=== PATIENT | female | born 1985 | race Hispanic/Latino ===

== ENCOUNTER 2019-02-03 21:39 | Emergency (ER) | payer OTHER ==
--- OUTSIDE RECORDS SUMMARY | 2019-02-03 21:42 | XMS REPORT | Summary of Care ---
:1985 Author Name RAQUEL MELENDEZ M.D. Address Unavailable Unavailable , Care Team Providers Name Role Phone RAQUEL MELENDEZ M.D. Unavailable Unavailable Unavailable Unavailable Unavailable Functional Status Name Dates Details Functional status health issues are not documented Status: Name Dates Details Cognitive status health issues are not documented Status: Problems Name Dates Details Common wart (078.19, B07.8) Status: Active Medications Name Dates Details TABS Refills: 0 Active Heparin Sodium (Porcine) 24327 UNIT/10ML Intravenous Solution Prefilled Syringe Refills: 0 Active Allergies and Adverse Reactions Name Dates Details No Known Drug Allergies (Allergy) Status: Active Procedures Procedure Dates Details Procedures not documented Immunization Name Dates Details Immunizations not documented Social History Name Dates Details Unknown if ever smoked Vital Signs Date Test Result Details No Known Vitals to report Results Date Description Value Details Results not documented Plan of Care Name Dates Details Planned Observations Planned Goals not documented Interventions Provided Discussion/SummaryImpression:. Verruca vulgaris- r/b/a of procedure discussed including blister development and pain -> consent -> etoh prep -> pare with 15 blade until flush with surrounding skin, cryo x 2 cycles to 2 lesion, patient tolerated well.Skin tag, L axillaverbal consent obtained, explained r/b/ a of procedure including risk of pain, bleeding, scar formation, light or dark isidra after treatment, and chance for lesion to regrow after treatment -> etoh prep -> gradle removal of 1 lesionPatient tolerated procedure well. Patient understands that the lesions will NOT be sent for pathology and tissue will be discarded.RTC 1 mo or PRN. Patient Discussion: This was discussed in detail with the patient and all questions were answered. Instructions Name Dates Details Instructions not documented Encounters Appointment; RAQUEL MELENDEZ M.D. On: 16-Jul-2017 13:00 Encounter Diagnosis: Problem not documented
[2019-02-03] MEDS ORDERED: NA CHLORIDE 0.9% 1,000 ML ONE (22:04)
[2019-02-03] MEDS ORDERED: PROMETHAZINE 25 MG/ML VIAL ONE (22:04)
[2019-02-03] MEDS ORDERED: PANTOPRAZOLE 40 MG INJ ONE (22:04)
[2019-02-03 22:27] LABS: Basophils % 0.3 % (0-1.3); Lymphocytes % 7.2 % (15.3-44.8); MPV 10.2 fL (7.6-11.3); RBC Red Blood Cell Count 4.68 M/uL (3.86-4.86)
[2019-02-03 22:55] LABS: Blood Morphology Comment NOT SEEN (NOT SEEN); Platelet Estimate ADEQ; Urine White Blood Cell Casts OK
[2019-02-03 23:08] LABS: Albumin 3.9 g/dL (3.4-5.0); Bilirubin Direct 0.2 mg/dL (0-0.2); Bilirubin Total 0.7 mg/dL (0.2-1.0); Potassium 3.6 mmol/L (3.5-5.1); Protein, Total 7.6 g/dL (6.4-8.2)
[2019-02-04 00:42] LABS: Urine Bacteria 20-50 /HPF (<20); Urine Culture Reflex Order NOT NEEDED; Urine Mucus 2+ /HPF (NONE SEEN)
[2019-02-04 00:42] LABS: Urine Blood TRACE (NEG); Urine Glucose NEGATIVE (NEG); Urine Protein NEGATIVE (NEG); Urine Specific Gravity 1.025 (1.005-1.030); Urine pH 6.5 (5.0-7.0)
--- NOTE | 2019-02-04 00:48 | ER ---
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 Transition of care: patient was not received from another setting of care. Onset of symptoms was February 03, 2019 at 14:00. Risk Assessment: Do you want to hurt yourself or someone else? Patient reports no desire to harm self or others. Initial Sepsis Screen: Does the patient meet any 2 criteria? No. Patient's initial sepsis screen is negative. Does the patient have a suspected source of infection? No. Patient's initial sepsis screen is negative. Care prior to arrival: None. 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 - Social history:: Smoking status: Patient/guardian denies using tobacco. - Ebola Screening: : No symptoms or risks identified at this time. Screenin:59 Abuse screen: Denies threats or abuse. Denies injuries from another. Nutritional lp1 screening: No deficits noted. Tuberculosis screening: No symptoms or risk factors identified. Fall Risk None identified. Assessment: 22:00 General: Appears uncomfortable, Behavior is appropriate for age. Pain: Complains of lp1 pain in epigastric area, right upper quadrant and left upper quadrant Pain radiates to back Pain currently is 10 out of 10 on a pain scale. Quality of pain is described as sharp, stabbing, Pain began gradually. Neuro: Level of Consciousness is awake, alert, obeys commands, Oriented to person, place, time, situation. Cardiovascular: Patient's skin is warm and dry. Respiratory: Respiratory effort is even, unlabored. GI: Abdomen is non-distended, Pt is actively vomiting bile, Bowel sounds present X 4 quads. Abdomen is tender to palpation in epigastric area, right upper quadrant and left upper quadrant Reports nausea, vomiting. : No signs and/or symptoms were reported regarding the genitourinary system. EENT: No signs and/or symptoms were reported regarding the EENT system. Derm: Skin is pink, warm \T\ dry. Musculoskeletal: No deficits noted. 23:00 Reassessment: Patient appears in no apparent distress at this time. Patient states lp1 nausea relief and some pain relief at this time. 02/04 00:00 Reassessment: Patient appears in no apparent distress at this time. Patient and/or lp1 family updated on plan of care and expected duration. Pain level reassessed. Patient states some pain returning at this time. 00:50 Reassessment: Patient appears in no apparent distress at this time. Provider at bedside lp1 to update patient on results. Vital Signs: 02/03 21:57 BP 124 / 74; Pulse 99; Resp 18; Temp 98.9(O); Pulse Ox 97% on R/A; Weight 74.84 kg; lp1 Height 5 ft. 4 in. (162.56 cm); Pain 10/10; 23:45 BP 124 / 79; Pulse 87; Resp 16; Pulse Ox 97% on R/A; lp1 02/04 00:30 BP 120 / 75; Pulse 87; Resp 16; Pulse Ox 97% on R/A; lp1 01:08 BP 108 / 69; Pulse 85; Resp 16; Pulse Ox 98% on R/A; lp1 02/03 21:57 Body Mass Index 28.32 (74.84 kg, 162.56 cm) lp1 ED Course: 02/03 21:42 Patient arrived in ED. ag3 21:56 Claire Rodney, EDGAR is Primary Nurse. lp1 21:57 Triage completed. lp1 21:57 Petey Wayne PA is PHCP. jr8 21:57 Pawan Velez MD is Attending Physician. jr8 21:57 Arm band placed on. lp1 21:59 Patient has correct armband on for positive identification. Placed in gown. Pulse ox lp1 on. NIBP on. 22:15 Missed attempt(s): 20 gauge in right antecubital area. lp1 22:20 Inserted saline lock: 22 gauge in right forearm, using aseptic technique. lp1 22:42 Radiology exam delayed due to lab results not completed at this time. (HCG) (BUN/Creatinine). 23:14 Radiology exam delayed due to test not completed at this time. 02/04 00:[address] via wheelchair. 00:09 CT completed. Patient tolerated procedure well. Patient moved back from CT. 00:30 CT Abd/Pelvis - IV Contrast Only In Process Unspecified. EDMS 01:06 No provider procedures requiring assistance completed. lp1 01:13 IV discontinued, No redness/swelling at site. Pressure dressing applied. lp1 Administered Medications: 02/03 22:25 Drug: Promethazine 12.5 mg Route: IVP; Site: right forearm; lp1 23:00 Follow up: Response: Marked relief of symptoms; Nausea is decreased lp1 22:25 Drug: ProTONIX 40 mg Route: IVP; Site: right forearm; lp1 23:00 Follow up: Response: No adverse reaction lp1 22:25 Drug: NS 0.9% 1000 ml Route: IV; Rate: 1000 ml; Site: right forearm; lp1 23:44 Follow up: IV Status: Completed infusion; IV Intake: 1000ml lp1 02/04 01:00 Drug: Rocephin 1 grams Route: IV; Rate: calculated rate; Site: right antecubital; ao 01:00 Follow up: IV Status: Completed infusion; IV Intake: 10ml ao 01:01 Follow up: Response: Medication administered at discharge. ao 01:16 Follow up: IV Status: Completed infusion; IV Intake: 10ml lp1 Intake: 02/03 23:44 IV: 1000ml; Total: 1000ml. lp1 02/04 01:00 IV: 10ml; Total: 1010ml. ao 01:16 IV: 10ml; Total: 1020ml. lp1 Outcome: 00:47 Discharge ordered by jrKanwal 01:07 Discharged to home ambulatory, with family. lp1 01:07 Condition: good 01:07 Discharge instructions given to patient, Instructed on discharge instructions, follow up and referral plans. medication usage, Demonstrated understanding of instructions, follow-up care, medications, Prescriptions given X 3. 01:16 Patient left the ED. lp1 Signatures: Dispatcher [employer] EDDav Sanderson Laura, RN RN lp1 Petey Wayne PA PA jr8 Karlos Parsons RN RN ao Gomez, Alice ag3
--- NOTE | 2019-02-04 00:48 | EDPHYS ---
Physician Documentation [facility] Name: Dee Alves Age: 34 yrs Sex: Female : 1985 Arrival Date: 02/03/2019 Time: 21:42 Bed 8 Private MD: ED Physician Pawan Velez HPI: 02/03 22:27 This 34 yrs old Female presents to ER via Ambulatory with complaints of jr8 Abdominal Pain. 22:27 The patient presents with abdominal pain in the epigastric area, in the upper abdomen. jr8 Onset: The symptoms/episode began/occurred acutely, today. The symptoms do not radiate. Associated signs and symptoms: Pertinent positives: nausea and vomiting. The symptoms are described as stabbing. Modifying factors: The symptoms are alleviated by nothing, the symptoms are aggravated by food. Severity of pain: At its worst the pain was moderate in the emergency department the pain is unchanged. The patient has not experienced similar symptoms in the past. The patient has not recently seen a physician. 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 - Social history:: Smoking status: Patient/guardian denies using tobacco. - Ebola Screening: : No symptoms or risks identified at this time. ROS: 22:27 Eyes: Negative for injury, pain, redness, and discharge, ENT: Negative for injury, jr8 pain, and discharge, Neck: Negative for injury, pain, and swelling, Cardiovascular: Negative for chest pain, palpitations, and edema, Respiratory: Negative for shortness of breath, cough, wheezing, and pleuritic chest pain, Back: Negative for injury and pain, MS/Extremity: Negative for injury and deformity, Skin: Negative for injury, rash, and discoloration, Neuro: Negative for headache, weakness, numbness, tingling, and seizure. 22:27 Abdomen/GI: Positive for abdominal pain, nausea and vomiting, Negative for diarrhea, constipation, abdominal cramps, abdominal distension. Exam: 22:27 Eyes: Pupils equal round and reactive to light, extra-ocular motions intact. Lids and jr8 lashes normal. Conjunctiva and sclera are non-icteric and not injected. Cornea within normal limits. Periorbital areas with no swelling, redness, or edema. ENT: Nares patent. No nasal discharge, no septal abnormalities noted. Tympanic membranes are normal and external auditory canals are clear. Oropharynx with no redness, swelling, or masses, exudates, or evidence of obstruction, uvula midline. Mucous membranes moist. Neck: Trachea midline, no thyromegaly or masses palpated, and no cervical lymphadenopathy. Supple, full range of motion without nuchal rigidity, or vertebral point tenderness. No Meningismus. Cardiovascular: Regular rate and rhythm with a normal S1 and S2. No gallops, murmurs, or rubs. Normal PMI, no JVD. No pulse deficits. Respiratory: Lungs have equal breath sounds bilaterally, clear to auscultation and percussion. No rales, rhonchi or wheezes noted. No increased work of breathing, no retractions or nasal flaring. Back: No spinal tenderness. No costovertebral tenderness. Full range of motion. Skin: Warm, dry with normal turgor. Normal color with no rashes, no lesions, and no evidence of cellulitis. MS/ Extremity: Pulses equal, no cyanosis. Neurovascular intact. Full, normal range of motion. Neuro: Awake and alert, GCS 15, oriented to person, place, time, and situation. Cranial nerves II-XII grossly intact. Motor strength 5/5 in all extremities. Sensory grossly intact. Cerebellar exam normal. Normal gait. 22:27 Abdomen/GI: Inspection: abdomen appears normal, Bowel sounds: active, all quadrants, Palpation: soft, in all quadrants, moderate abdominal tenderness, in the epigastric area, mass, is not appreciated, rebound tenderness, is not appreciated, voluntary guarding, is not appreciated, involuntary guarding, is not appreciated, no appreciated organomegaly, Indicators: McBurney's point is not tender, Lino's sign is negative, Rovsing's sign is negative, Liver: tenderness, is not appreciated. Vital Signs: 21:57 BP 124 / 74; Pulse 99; Resp 18; Temp 98.9(O); Pulse Ox 97% on R/A; Weight 74.84 kg; lp1 Height 5 ft. 4 in. (162.56 cm); Pain 10/10; 23:45 BP 124 / 79; Pulse 87; Resp 16; Pulse Ox 97% on R/A; lp1 02/04 00:30 BP 120 / 75; Pulse 87; Resp 16; Pulse Ox 97% on R/A; lp1 01:08 BP 108 / 69; Pulse 85; Resp 16; Pulse Ox 98% on R/A; lp1 02/03 21:57 Body Mass Index 28.32 (74.84 kg, 162.56 cm) lp1 MDM: 02/03 22:00 Patient medically screened. 8 02/04 00:46 Data reviewed: vital signs, nurses notes, lab test result(s), radiologic studies, CT jr8 scan. Data interpreted: Pulse oximetry: on room air is 97 %. Interpretation: normal. Counseling: I had a detailed discussion with the patient and/or guardian regarding: the historical points, exam findings, and any diagnostic results supporting the discharge/admit diagnosis, lab results, radiology results, the need for outpatient follow up, a family practitioner, to return to the emergency department if symptoms worsen or persist or if there are any questions or concerns that arise at home. 00:46 Response to treatment: the patient's symptoms have markedly improved after treatment, jr8 patient is well hydrated. 02/03 22:00 Order name: Basic Metabolic Panel; Complete Time: 23:12 [facility] 02/03 22:00 Order name: CBC with Diff; Complete Time: 23:12 [facility] 02/03 22:00 Order name: Creatinine for Radiology; Complete Time: 22:52 [facility] 02/03 22:00 Order name: Hepatic Function; Complete Time: 23:12 [facility] 02/03 22:00 Order name: Lipase; Complete Time: 23:12 [facility] 02/03 22:56 Order name: CBC Smear Scan; Complete Time: 23:12 [facility] 02/03 22:31 Order name: CT Abd/Pelvis - IV Contrast Only [facility] 02/03 23:48 Order name: Urine Microscopic Only; Complete Time: 00:46 [facility] 02/03 23:48 Order name: Urine Culture [facility] 02/03 23:59 Order name: Urine Dipstick--Ancillary (enter results); Complete Time: 00:46 [facility] 02/03 23:59 Order name: Urine --Ancillary (enter results); Complete Time: 00:46 [facility] 02/03 22:00 Order name: IV Saline Lock; Complete Time: 22:29 jr8 02/03 22:00 Order name: Labs collected and sent; Complete Time: 22:30 jr8 02/03 22:00 Order name: Urine Test (obtain specimen); Complete Time: 23:51 jr8 02/03 22:00 Order name: Urine Dipstick-Ancillary (obtain specimen); Complete Time: 23:51 jr8 Administered Medications: 02/03 22:25 Drug: Promethazine 12.5 mg Route: IVP; Site: right forearm; lp1 23:00 Follow up: Response: Marked relief of symptoms; Nausea is decreased lp1 : Drug: ProTONIX 40 mg Route: IVP; Site: right forearm; lp1 23:00 Follow up: Response: No adverse reaction 1 : Drug: NS 0.9% 1000 ml Route: IV; Rate: 1000 ml; Site: right forearm; lp1 23:44 Follow up: IV Status: Completed infusion; IV Intake: 1000ml lp1 02/04 01:00 Drug: Rocephin 1 grams Route: IV; Rate: calculated rate; Site: right antecubital; ao 01:00 Follow up: IV Status: Completed infusion; IV Intake: 10ml ao 01:01 Follow up: Response: Medication administered at discharge. ao 01:16 Follow up: IV Status: Completed infusion; IV Intake: 10ml lp1 Disposition: 06:19 Co-signature as Attending Physician, Pawan Velez MD I agree with the assessment and 4 plan of care. Disposition: 02/04/19 00:47 Discharged to Home. Impression: Vomiting, Epigastric pain, Urinary tract infection, site not specified. - Condition is Stable. - Discharge Instructions: Abdominal Pain, Adult, Urinary Tract Infection, Adult. - Prescriptions for Macrobid 100 mg Oral Capsule - take 1 capsule by ORAL route every 12 hours for 7 days; 14 capsule. promethazine 25 mg Oral Tablet - take 1 tablet by ORAL route every 6 hours As needed; 20 tablet. Bentyl 20 mg Oral Tablet - take 1 tablet by ORAL route every 6 hours As needed; 20 tablet. - Work release form, Medication Reconciliation Form, Thank You Letter, Antibiotic Education, Prescription Opioid Use form. - Follow up: Private Physician; When: 2 - 3 days; Reason: Recheck today's complaints, Continuance of care, Re-evaluation by your physician. - Problem is new. - Symptoms have improved. Signatures: Dispatcher [employer] [facility] Claire Rodney RN RN lp1 Petey Wayne, REY LE jr8 Karlos Parsons RN RN Pawan Matthews MD MD tw4 Corrections: (The following items were deleted from the chart) 02/03 23:38 23:29 TEST, SERUM+SC.LAB.BRZ ordered. [facility] 02/04 01:16 00:47 02/04/2019 00:47 Discharged to Home. Impression: Vomiting; Epigastric pain; lp1 Urinary tract infection, site not specified. Condition is Stable. Forms are Medication Reconciliation Form, Thank You Letter, Antibiotic Education, Prescription Opioid Use. Follow up: Private Physician; When: 2 - 3 days; Reason: Recheck today's complaints, Continuance of care, Re-evaluation by your physician. Problem is new. Symptoms have improved. jr8
[2019-02-04] MEDS ORDERED: CEFTRIAXONE/SWI 1gm 0 GM/0 ML SYR ONE (00:52)
[2019-02-04] MEDS ORDERED: CEFTRIAXONE/SWI 1gm 1 GM/10 ML SYR ONE (00:57)
[2019-02-04 05:29] VITALS: TEMP 98.9
[2019-02-04 05:33] VITALS: BP 108/69; O2SAT 98
--- NOTE | 2019-02-04 10:56 | RAD REPORT ---
EXAM DESCRIPTION: CT - Abdomen Pelvis W Contrast - 02/04/2019 1:28 am CLINICAL HISTORY: 34 years Female ABD PAIN COMPARISON: None TECHNIQUE: Images were obtained in axial, sagittal, and coronal planes. Intravenous contrast was adm inistered. Arterial and venous phase imaging was performed in the axial projection. This exam was performed according to our departmental dose-optimization program which includes use of Automated Exposure Control, adjustment of the mA and/or kV according to patient size and/or use of i terative reconstruction technique. FINDINGS: Decreased attenuation involving liver likely fatty change. Unremarkable spleen, pancreas, and adrenal glands bilaterally. Mildly distended gallbladder. No obstructing renal calcifications bilaterally. No hydronephrosis bilaterally. Incompletely distende d bladder. Appendix within normal limits. No bowel obstruction, perforation, or inflammation. No abnormality abdominal aorta or portal vein. No adenopathy or abnormal fluid collections seen. No acute osseous abnormality. Dependent atelectatic change lower lungs bilaterally. IMPRESSION: No acute intra-abdominal abnormality. 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 The interpreting radiologist is f ully responsible for the content of the report.
== END 2019-02-04 01:16 | disposition home or self-care (01) ==
LOC: ER 21:39
DX: N39.0 Urinary tract infection, site not specified (principal); R11.10 Vomiting, unspecified
CPT/HCPCS: 96361; 87088; 85025; 87086; 80048; 36415; 81025; 80076; 83690; 74177; 96375; 96374; 99284; Q9967; J2550; C9113; J0696; J7030; 81003; 81015

== ENCOUNTER 2020-08-04 08:48 | Day surgery (SDC) | payer OTHER ==
[2020-08-04] MEDS ORDERED: ACETAMINOPHEN 500 MG TAB PO ONE (09:20)
[2020-08-04] MEDS ORDERED: CELECOXIB 100 MG CAPSULE PO ONE (09:20)
[2020-08-04] MEDS ORDERED: CEFAZOLIN/SWI 1gm 1 GM/10 ML SYR ONE (09:27)
[2020-08-04] MEDS ORDERED: Ringers Lactate 1,000 ML IV ONE (09:27)
[2020-08-04] MEDS ORDERED: CELECOXIB 100 MG CAPSULE ONE (09:45)
[2020-08-04] MEDS ORDERED: ACETAMINOPHEN 500 MG TAB ONE (09:46)
[2020-08-04] MEDS ORDERED: BUPIVACAINE 0.25% PF 30 ML VIAL ONE (10:22)
[2020-08-04] MEDS ORDERED: propofoL 200 MG/20 ML VIAL IV ONE (10:24)
[2020-08-04] MEDS ORDERED: MIDAZOLAM HCL 2 MG/2 ML INJ ONE (10:24)
[2020-08-04] MEDS ORDERED: FENTANYL CITR 100 MCG/2 ML ONE (10:24)
[2020-08-04] MEDS ORDERED: LIDOCAINE 1% MPF 5 ML VIAL ONE (10:24)
[2020-08-04] MEDS ORDERED: dexAMETHasone 10 MG/ML VIAL ONE (11:00)
[2020-08-04] MEDS ORDERED: KETOROLAC 30 MG/ML INJ ONE (11:00)
--- NOTE | 2020-08-04 11:07 | P.OP ---
Preoperative diagnosis: Back Lipomatous Mass Postoperative diagnosis: Back Lipomatous Mass Primary procedure: Wide excision of Lipomatous Mass Anesthesia: GETA + Local Estimated blood loss: <2cc Specimen: lipoma Findings: ~ 4cm round lipomatous mass to muscle Complications: None Transferred to: Recovery Room Condition: Good
[2020-08-04] MEDS ORDERED: ONDANSETRON 4 MG/2 ML VIAL ONE (11:19)
[2020-08-04] MEDS ORDERED: HYDROCODONE/APAP 7.5/325 MG TAB ONE (13:08)
[2020-08-04 14:27] VITALS: BP 114/69; TEMP 98.4; O2SAT 99
--- NOTE | 2020-08-04 21:41 | OP ---
Date of Procedure: 08/04/2020 Surgeon: Lamont Dougherty MD, Preoperative Diagnosis: Back lipomatous mass. Postoperative Diagnosis: Back lipomatous mass. Procedure Performed: Wide excision of lipomatous mass of the mid back. Anesthesia: General endotracheal plus local with 0.25% Marcaine. Estimated Blood Loss: 2 mL. Specimen: Lipoma. Findings: Approximately 4 cm round lipomatous mass extending to the muscle and up through the fascia overlying the muscle. Complications: None. Disposition: The patient transferred to recovery room in good condition. Procedure In Detail: After informed consent was obtained, the patient was brought to the operating r oom, prepped and draped in the usual sterile fashion. After adequate anesthesia was achieved, linear incision was made overlying the lipomatous mass in the upper midback area just off center to the rig ht of midline. After appropriately anesthetizing the skin with 0.25% Marcaine, the skin was incised with a 15 blade down through subcutaneous tissues. Electrocautery was used to dissect circumferentia lly around the lipomatous mass. This was circumferentially removed. It was found to be into the fas jerson overlying the muscle but not involving the muscle as such. It was removed with a small rim of fa scia overlying the muscle on block. It was approximately 4 cm round and sent off for pathologic exam ination. The area was copiously irrigated at this time. The deep dermal plane was closed using an i nterrupted 3-0 Vicryl suture and the skin was closed with 4-0 Monocryl in a running fashion. Dermabo nd was placed over top. The patient tolerated the procedure without evidence of complication and tra nsferred to PACU in good condition. All counts were correct at the end of the case. TK/MODL Voice ID: [id number] Report ID: [id number]
== END 2020-08-04 13:38 | disposition home or self-care (01) ==
LOC: OR 08:48
PROVIDERS: ATTEND Surgery
PROC: 0JB70ZZ Excision of Back Subcutaneous Tissue and Fascia, Open Approach (ICD-10-PCS; principal; 2020-08-04 11:45)
DX: D17.1 Benign lipomatous neoplasm of skin and subcutaneous tissue of trunk (principal); Z20.822 Contact with and (suspected) exposure to COVID-19
CPT/HCPCS: 81025; 88304; 11404; U0002; J2704; J2250; J3010; J1100; J0690; J7120; J2405; 88305

== ENCOUNTER 2020-11-23 17:18 | Emergency (ER) | payer OTHER ==
[2020-11-23 18:46] LABS: Urine Blood Trace-intact (Negative); Urine Glucose Negative (Negative); Urine Protein Negative (Negative); Urine Specific Gravity 1.015 (1.005-1.030)
[2020-11-23 18:56] LABS: Urine Specific Gravity/Preg 1.015 (1.005-1.030)
[2020-11-23] MEDS ORDERED: ONDANSETRON 4 MG/2 ML VIAL ONE (19:08)
[2020-11-23] MEDS ORDERED: MORPHINE 4 MG/ML SYR ONE (19:08)
[2020-11-23 19:24] LABS: ALT/SGPT 109 U/L (12-78); AST/SGOT 168 U/L (15-37); Albumin 4.5 g/dL (3.4-5.0); Alkaline Phosphatase 87 U/L (45-117); BUN Blood Urea Nitrogen 8 mg/dL (7-18); Bicarbonate 29 mmol/L (21-32); Bilirubin Direct < 0.1 mg/dL (0-0.2); Bilirubin Total 0.4 mg/dL (0.2-1.0); Glucose Level 79 mg/dL (74-106); Lipase 158 U/L (73-393); Potassium 3.7 mmol/L (3.5-5.1); Protein, Total 8.9 g/dL (6.4-8.2); Sodium Level 142 mmol/L (136-145)
[2020-11-23 19:41] LABS: Absolute Lymphocytes (CBC) 2.8 K/uL (0.7-4.9); Basophils % 0.5 % (0-1.3); Hematocrit 34.4 % (36.0-45.0); Lymphocytes % 27.2 % (15.3-44.8); RBC Red Blood Cell Count 3.96 M/uL (3.86-4.86)
[2020-11-23] MEDS ORDERED: NA CHLORIDE 0.9% 500 ML ONE (20:02)
--- NOTE | 2020-11-23 20:20 | RAD REPORT ---
EXAM DESCRIPTION: CT - Abdomen Pelvis W Contrast - 11/23/2020 7:41 pm CLINICAL HISTORY: rectal pressure and bleeding;Abd pain COMPARISON: <Comparisons> TECHNIQUE: Biphasic, helical CT imaging of the abdomen and pelvis was performed following 100 ml non -ionic IV contrast. No oral contrast. All CT scans are performed using dose optimization technique as appropriate and may include automated exposure control or mA/KV adjustment according to patient size. FINDINGS: No suspicious findings in the lung bases. The liver, spleen, and pancreas show no suspicious focal findings. Liver again shows mild diffuse fat ty infiltration. No gallbladder or biliary tree abnormality. Symmetric renal function is seen with no hydronephrosis or suspicious renal mass. No pyelonephritis o r acute parenchymal process. No bladder abnormalities. No adrenal abnormalities. Uterus and ovaries s how no suspicious findings. No stomach or small bowel abnormality. Appendix is normal. No rectal abnormality seen. No pelvic floo r suspicious finding. No acute colon process identified. No free air, free fluid or inflammatory stranding. No hernia, mass or bulky lymphadenopathy. No suspicious bony findings. IMPRESSION: Contrast enhanced CT abdomen and pelvis showing no acute or emergent finding. Above detailed findings are similar to 2019 comparison.
--- NOTE | 2020-11-23 20:34 | EDPHYS ---
Physician Documentation [facility] Name: Dee Alves Age: 35 yrs Sex: Female : 1985 Arrival Date: 11/23/2020 Time: 17:21 Bed 10 Private MD: ED Physician Felix Peralta HPI: 11/23 19:28 This 35 yrs old Female presents to ER via Ambulatory with complaints of Bloody jr8 Stools. 19:28 Onset: The symptoms/episode began/occurred acutely, today. Associated signs and jr8 symptoms: Pertinent positives: abdominal pain. The patient has not experienced similar symptoms in the past. The patient has not recently seen a physician. Patient stated that she started to have bright red blood in her stool. Has progressed to rectal pressure and abdominal pain denies fever. Has had an on and off diarrhea since this past Friday but is not unusual for her.. 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 - Social history:: Smoking status: Patient denies any tobacco usage or history of. ROS: 19:28 Eyes: Negative for injury, pain, redness, and discharge, ENT: Negative for injury, jr8 pain, and discharge, Neck: Negative for injury, pain, and swelling, Cardiovascular: Negative for chest pain, palpitations, and edema, Respiratory: Negative for shortness of breath, cough, wheezing, and pleuritic chest pain, Back: Negative for injury and pain, MS/Extremity: Negative for injury and deformity, Skin: Negative for injury, rash, and discoloration, Neuro: Negative for headache, weakness, numbness, tingling, and seizure. 19:28 Abdomen/GI: Positive for abdominal pain, rectal pain, rectal bleeding. Exam: 19:28 Constitutional: This is a well developed, well nourished patient who is awake, alert, jr8 and in no acute distress. Cardiovascular: Regular rate and rhythm with a normal S1 and S2. No gallops, murmurs, or rubs. Normal PMI, no JVD. No pulse deficits. Respiratory: Lungs have equal breath sounds bilaterally, clear to auscultation and percussion. No rales, rhonchi or wheezes noted. No increased work of breathing, no retractions or nasal flaring. Back: No spinal tenderness. No costovertebral tenderness. Full range of motion. Skin: Warm, dry with normal turgor. Normal color with no rashes, no lesions, and no evidence of cellulitis. MS/ Extremity: Pulses equal, no cyanosis. Neurovascular intact. Full, normal range of motion. Neuro: Awake and alert, GCS 15, oriented to person, place, time, and situation. Cranial nerves II-XII grossly intact. Motor strength 5/5 in all extremities. Sensory grossly intact. 19:28 Abdomen/GI: Inspection: abdomen appears normal, Bowel sounds: active, all quadrants, Palpation: soft, in all quadrants, mild abdominal tenderness, in the suprapubic area, right lower quadrant and left lower quadrant, mass, is not appreciated, rebound tenderness, is not appreciated, voluntary guarding, is not appreciated, involuntary guarding, is not appreciated, no appreciated organomegaly, Rectal exam: rectal tone normal, Stool: brown, guaiac positive, loose, hemorrhoid(s), internal, without inflammation, without thrombosis, without pain, mass, is not appreciated, swelling, is not appreciated, tenderness, is not appreciated, the exam is chaperoned by the nurse, Indicators: McBurney's point is not tender, Lino's sign is negative, Rovsing's sign is negative, Liver: tenderness, is not appreciated. Vital Signs: 17:54 BP 136 / 90; Pulse 75; Resp 17; Temp 97.8; Pulse Ox 100% on R/A; Weight 74.84 kg; jl7 Height 5 ft. 4 in. (162.56 cm); Pain 6/10; 20:59 BP 138 / 88; Pulse 70; Resp 18; Temp 97.6(O); Pulse Ox 100% on R/A; Pain 0/10; kc4 17:54 Body Mass Index 28.32 (74.84 kg, 162.56 cm) jl7 MDM: 18:26 Patient medically screened. jr8 20:31 Data reviewed: vital signs, nurses notes, lab test result(s), radiologic studies, CT jr8 scan. Data interpreted: Pulse oximetry: on room air is 100 %. Interpretation: normal. 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 Response to treatment: the patient's symptoms have markedly improved after treatment. Special discussion: Based on the patient's Hx, exam, and Dx evaluation, there is no indication for emergent surgery or inpatient Tx. It is understood by the patient/guardian that if the Sx's persist or worsen they need to return immediately for re-evaluation. 20:31 ED course: With patient that most likely this is a small internal hemorrhoid that has jr8 been causing some mild bleeding. No profuse bleeding on rectal exam. Hemoccult was positive. Will trial patient on Anusol and have her follow-up with gastroenterology. Otherwise she is hemodynamically stable and there is no acute findings on the CT with contrast. If she were to worsening point time to come back for further evaluation. Patient good with this at this time and will follow up.. 11/23 18:37 Order name: Basic Metabolic Panel 8 11/23 18:37 Order name: CBC with Diff; Complete Time: 20:15 8 11/23 18:37 Order name: Hepatic Function; Complete Time: 19:30 8 11/23 18:37 Order name: Lipase; Complete Time: 19:30 [facility] 11/23 18:37 Order name: Basic Metabolic Panel; Complete Time: 19:30 EDMS 11/23 18:45 Order name: Urine Dipstick-Ancillary; Complete Time: 19:30 EDMS 11/23 18:37 Order name: IV Saline Lock; Complete Time: 18:40 8 11/23 18:37 Order name: Labs collected and sent; Complete Time: 18:40 8 11/23 18:37 Order name: CT Abd/Pelvis - IV Contrast Only; Complete Time: 20:30 [facility] 11/23 18:46 Order name: Urine --Ancillary (enter results) em1 11/23 18:47 Order name: Urine --Ancillary; Complete Time: 19:30 EDMS 11/23 18:37 Order name: Urine Dipstick-Ancillary (obtain specimen); Complete Time: 18:45 jr8 11/23 18:37 Order name: Urine Test (obtain specimen); Complete Time: 18:45 jr8 Administered Medications: 18:47 Drug: Zofran (Ondansetron) 4 mg Route: IVP; Site: left forearm; vg1 21:00 Follow up: Response: No adverse reaction kc4 18:49 Drug: morphine 4 mg Route: IVP; Site: left forearm; vg1 21:00 Follow up: Response: No adverse reaction kc4 19:55 Drug: NS 0.9% 500 ml Route: IV; Rate: bolus; Site: left forearm; kc4 21:00 Follow up: Response: No adverse reaction; IV Status: Completed infusion kc4 Disposition Summary: 11/23/20 20:33 Discharge Ordered Location: Home jr Problem: new jr8 Symptoms: have improved jr8 Condition: Stable jr8 Diagnosis - Unspecified hemorrhoids - with bleeding jr8 Followup: jr8 - With: Brian Tolbert MD - When: 2 - 3 days - Reason: Recheck today's complaints, Continuance of care, Re-evaluation by your physician Discharge Instructions: - Discharge Summary Sheet jr8 - Hemorrhoids [facility] Forms: - Medication Reconciliation Form jr8 - Thank You Letter jr8 - Antibiotic Education jr8 - Prescription Opioid Use jr8 Prescriptions: - Anusol-HC 25 mg Rectal Suppository - insert 1 suppository by RECTAL route every 12 hours As needed; 20 suppository; jr8 Refills: 0, Product Selection Permitted Addendum: 11/27/2020 06:58 Co-signature as Attending Physician, Felix Peralta MD I agree with the assessment and c aguilar plan of care. Signatures: Dispatcher [employer] Felix Mcmillan MD MD cha Roszak, Josh, PA PA jr8 Crystal Alex, RN RN jl7 Sue Reyez, RN RN vg1 Elena Wells kc4
--- NOTE | 2020-11-23 20:34 | ER ---
Nurse's Notes [facility] Name: Dee Alves Age: 35 yrs Sex: Female : 1985 Arrival Date: 11/23/2020 Time: 17:21 Bed 10 Private MD: Diagnosis: Unspecified hemorrhoids-with bleeding Presentation: 11/23 17:54 Chief complaint: Patient states: Diarrhea since Friday, Bright red rectal bleeding jl7 since this morning, rectal pain started about 1200, denies N/V. Coronavirus screen: At this time, the client does not indicate any symptoms associated with coronavirus-19. Ebola Screen: No symptoms or risks identified at this time. Initial Sepsis Screen: Does the patient meet any 2 criteria? No. Patient's initial sepsis screen is negative. Does the patient have a suspected source of infection? No. Patient's initial sepsis screen is negative. Risk Assessment: Do you want to hurt yourself or someone else? Patient reports no desire to harm self or others. Onset of symptoms was November 23, 2020. 17:54 Method Of Arrival: Ambulatory 7 17:54 Acuity: DIOGENES 3 jl7 Triage Assessment: 17:56 General: Appears in no apparent distress. uncomfortable, Behavior is calm, cooperative, jl7 appropriate for age. Pain: Complains of pain in buttocks Pain currently is 6 out of 10 on a pain scale. GI: Reports diarrhea, rectal bleeding. 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 - Social history:: Smoking status: Patient denies any tobacco usage or history of. Screenin:07 Abuse screen: Denies threats or abuse. Denies injuries from another. Nutritional es2 screening: No deficits noted. Tuberculosis screening: No symptoms or risk factors identified. Fall Risk Gait- Normal/Bed Rest/Wheelchair (0 pts) Mental Status- Oriented to own ability (0 pts). Assessment: 18:05 Reassessment: Patient and/or family updated on plan of care and expected duration. Pain es2 level reassessed. Patient is alert, oriented x 3, equal unlabored respirations, skin warm/dry/pink. Pt reports diarrhea. Rectal bleeding that started today. General: Appears well groomed, well developed, well nourished, Behavior is calm, cooperative, appropriate for age. Pain: Complains of pain in back Pain currently is 6 out of 10 on a pain scale. Neuro: Level of Consciousness is awake, alert, obeys commands, Oriented to person, place, time, situation, Appropriate for age Gait is steady, Speech is normal. Cardiovascular: Capillary refill < 3 seconds Patient's skin is warm and dry. Respiratory: Airway is patent Trachea midline Respiratory effort is even, Respiratory pattern is regular. GI: Reports diarrhea, rectal bleeding. : No signs and/or symptoms were reported regarding the genitourinary system. EENT: No signs and/or symptoms were reported regarding the EENT system. Derm: No signs and/or symptoms reported regarding the dermatologic system. Musculoskeletal: No signs and/or symptoms reported regarding the musculoskeletal system. Vital Signs: 17:54 BP 136 / 90; Pulse 75; Resp 17; Temp 97.8; Pulse Ox 100% on R/A; Weight 74.84 kg; jl7 Height 5 ft. 4 in. (162.56 cm); Pain 6/10; 20:59 BP 138 / 88; Pulse 70; Resp 18; Temp 97.6(O); Pulse Ox 100% on R/A; Pain 0/10; kc4 17:54 Body Mass Index 28.32 (74.84 kg, 162.56 cm) jl7 ED Course: 17:21 Patient arrived in ED. as 17:56 Triage completed. jl7 17:56 Arm band placed on right wrist. jl7 18:01 Rakel Clement, EDGAR is Primary Nurse. es2 18:07 Patient has correct armband on for positive identification. Bed in low position. Call es2 light in reach. 18:15 Initial lab(s) drawn, by me. Missed attempt(s): 20 gauge in right antecubital area. vg1 18:25 Petey Wayne PA is PHCP. jr8 18:25 Felix Peralta MD is Attending Physician. jr8 18:29 Inserted saline lock: 22 gauge in left forearm, using aseptic technique. vg1 18:40 Basic Metabolic Panel Sent. es2 18:40 CBC with Diff Sent. es2 18:40 Hepatic Function Sent. es2 18:41 Basic Metabolic Panel Sent. es2 18:41 Lipase Sent. es2 19:07 Urine --Ancillary (enter results) Sent. kc4 19:07 Basic Metabolic Panel Sent. kc4 19:08 Annette Nice, RN is Primary Nurse. cc4 19:08 CBC with Diff Sent. kc4 19:08 Hepatic Function Sent. kc4 19:08 Lipase Sent. kc4 19:40 CT Abd/Pelvis - IV Contrast Only In Process Unspecified. EDMS 20:32 Brian Tolbert MD is Referral Physician. jr8 20:58 No provider procedures requiring assistance completed. IV discontinued, intact, kc4 bleeding controlled, No redness/swelling at site. Pressure dressing applied. Administered Medications: 18:47 Drug: Zofran (Ondansetron) 4 mg Route: IVP; Site: left forearm; vg1 21:00 Follow up: Response: No adverse reaction kc4 18:49 Drug: morphine 4 mg Route: IVP; Site: left forearm; vg1 21:00 Follow up: Response: No adverse reaction kc4 19:55 Drug: NS 0.9% 500 ml Route: IV; Rate: bolus; Site: left forearm; kc4 21:00 Follow up: Response: No adverse reaction; IV Status: Completed infusion kc4 Outcome: 20:33 Discharge ordered by . jr8 20:58 Discharged to home ambulatory. kc4 20:58 Condition: stable 20:58 Discharge instructions given to patient, Instructed on discharge instructions, follow up and referral plans. safe sex practices, Demonstrated understanding of instructions, follow-up care, medications, Prescriptions given X 1. 21:01 Patient left the ED. kc4 Signatures: Dispatcher [employer] EDMS Natacha De La Cruz Josh, PA PA jr8 Crystal Alex RN RN jl7 Sue Reyez RN RN vg1 Elena Wells kc4 Annette Nice, RN RN cc4 Rakel Clement, RN RN es2
[2020-11-23 21:15] VITALS: O2SAT 100
[2020-11-23 21:17] VITALS: BP 138/88; TEMP 97.6
== END 2020-11-23 21:01 | disposition home or self-care (01) ==
LOC: ER 17:18
DX: K64.9 Unspecified hemorrhoids (principal)
CPT/HCPCS: 96361; 85025; 80048; 36415; 81025; 80076; 81003; 83690; 74177; 96375; 96374; 99284; Q9967; J7040; J2405

== ENCOUNTER 2022-11-26 09:22 | Emergency (ER) | payer OTHER ==
--- OUTSIDE RECORDS SUMMARY | 2022-11-26 09:27 | XMS REPORT | Continuity of Care Document ---
:[address] [facility] t Address [address] [facility] [place] [address] Care Team Providers Name Role Phone Brian Leon Primary Care Physician BILL KRUEGER Attending Clinician Unavailable Bill Krueger MD Attending Clinician Raquel Urrutia MD Attending Clinician Darryl HERNÁNDEZ, [place]ana Hernandez Attending Clinician Unavailable Brian Leon Attending Clinician Only, Ang Db Test Attending Clinician Unavailable EbIrma Damon Attending Clinician IRMA BECK Attending Clinician Unavailable Doctor Unassigned, [place] Attending Clinician Unavailable GRACE JARA Attending Clinician Unavailable RAQUEL URRUTIA Attending Clinician Unavailable Pob, [facility] Lab Main Attending Clinician Unavailable Aram Rosenthal DO Attending Clinician Daysi Dahl Attending Clinician Tera OLMEDO, Carolyn Rangel Attending Clinician [phone] Leanna Serna Attending Clinician Unavailable Nurse, Garima Tucker Attending Clinician Unavailable RADHA KELLY Attending Clinician Unavailable Lab, Adc Fam Pob I Attending Clinician Unavailable Radha Vaughn Attending Clinician RAQUEL MEELNDEZ M.D. Attending Clinician Unavailable BILL KRUEGER Admitting Clinician Unavailable Payers Payer Name Policy Type Policy Number Effective Date Expiration Date S [facility] [id number] 2020 00:00:00 [place] [place] - [id number] 2019 OUT OF STATE 00:00:00 Problems Condition Condition Condition Status Onset Resolution Last Treating Co mments Source Name Details Category Date Date Treatment Clinician Date Encounter Encounter Disease Active Uni vers for for 3- [place] 00 [facility] contracept contracept Br anch ion ion SAB SAB Disease Active Univers (spontaneo (spontaneo - it y of us us 00:00: [place] ) ) 00 [facility] APS APS Disease Active Univers (antiphosp (antiphosp - it y of holipid holipid 00:00: [place] syndrome) syndrome) 00 [facility] Headache Headache Condition Active 2014-08-09 Memoria Active 08-09 15:46:52 l 08/09/2014 00:00: Pedro n Condition 00 08/09/2014 [facility] Body Mass Body Mass Condition Active 2014-08-09 Memoria Index Index 7- 15:46:52 l 26.0-26.9 26.0-26.9 00:00: Herm eleanor Adult Adult 00 Active 09/11/2013 Condition 08/09/2014 [facility] Other Other Condition Active 2014-08-09 Mem oria symptoms symptoms - 15:46:52 l involving involving 00:00: Herm eleanor abdomen abdomen 00 and pelvis and pelvis Active 09/10/2013 Condition 08/09/2014 [facility] SORE SORE Condition Active 2014-08-09 Mem oria THROAT THROAT - 15:46:52 l Active 00:00: [place] 05/31/2013 00 Condition 08/09/2014 [facility] ALLERGIC ALLERGIC Condition Active 2014-08-09 Memoria RHINITIS RHINITIS 10-30 15:46:52 l Active 00:00: [place] 10/30/2012 00 Condition 08/09/2014 [facility] VAGINITIS VAGINITIS Condition Active 2014-08-09 Memoria Active 10-21 15:46:52 l 10/21/2012 00:00: Pedro n Condition 00 08/09/2014 [facility] SHORTNESS SHORTNESS Condition Active 2014-08-09 Memoria OF BREATH OF BREATH 07-14 15:46:52 l Active 00:00: Marty 07/14/2012 00 Condition 08/09/2014 [facility] NAUSEA NAUSEA Condition Active 2014-08-09 Me moria Active 07-14 15:46:52 l 07/14/2012 00:00: Pedro hatch Condition 00 08/09/2014 [facility] FATIGUE FATIGUE Condition Active 2014-08-09 Memoria Active 04-09 15:46:52 l 04/09/2012 00:00: Pedro hatch Condition 00 08/09/2014 [facility] WEIGHT WEIGHT Condition Active 2014-08-09 Me moria GAIN GAIN 04-09 15:46:52 l Active 00:00: Marty 04/09/2012 00 Condition 08/09/2014 [facility] ROUTINE ROUTINE Condition Active 2011-022014-08-09 Memoria GYNECOLOGI GYNECOLOGI 0-08 15:46:52 l MORENO MORENO 00:00: Marty EXAMINATIO EXAMINATIO 00 N N Active 11/25/2011 Condition 08/09/2014 [facility] WELL ADULT WELL Condition Active 2014-08-09 Memoria ADULT 08-13 15:46:52 l Active 00:00: Marty 08/14/2011 00 Condition 08/09/2014 [facility] Common Common Problem Active [place] wart wart [id number] Physic i ans History of Past Illness Condition Condition Condition Status Onset Resolution Last Treating Co mments Source Name Details Category Date Date Treatment Clinician Date URI URI Condition Inactiv 2011-022014-08-09 2014-08-09 Memoria Inactive e 0-08 15:46:52 15:46:52 l 11/25/2011 00:00: Pedro hatch Condition 00 08/09/2014 [facility] ACUTE ACUTE Condition Inactiv 2014-08-09 2014-08-09 Memoria PHARYNGITI PHARYNGITI e 6- 15:46:52 15:46:52 l S S Inactive 00:00: Pedro hatch 08/05/2011 00 Condition 08/09/2014 [facility] PHARYNGITI PHARYNGIT Condition Inactiv 2011-0 2014-08-09 2014-08-09 Sai S, IS, e 08-04 15:46:52 15:46:52 l STREPTOCOC STREPTOCOC 00:00: He rmann MORENO, ACUTE MORENO, ACUTE 00 Inactive 08/05/2011 Condition 08/09/2014 [facility] Allergies, Adverse Reactions, Alerts Allergy Allergy Status Severity Reaction(s) Onset Inactive Treating Comm ents Source Name Type Date Date Clinician NO KNOWN Drug Active Univers ALLERGIE Class ity of S [facility] Family History Family Member Diagnosis Comments Start Date Stop Date Source Natural [facility] Natural mother Breast cancer [facility] Natural sister Lupus [facility] Social History Social Habit Start Date Stop Date Quantity Comments Source Sexual orientation [facility] Exposure to 2021-10-07 2021-10-17 Yes University of SARS-CoV-2 (event) 00:00:00 11:20:00 [facility] Alcohol intake 2021-08-06 2021-08-06 Current drinker [facility] dist 00:00:00 00:00:00 of alcohol Hospital (finding) History of Social 2021-08-06 2021-08-[address] function 00:00:00 00:00:00 Hospital Tobacco use and 2021-07-23 2021-07-23 Smokeless [facility] exposure 00:00:00 00:00:00 tobacco non-user Hospital History [facility] 2019-10-22 2019-10-22 99 University o f Alcohol Frequency 00:00:00 00:00:00 [place] [facility] History [facility] 2019-10-22 2019-10-22 99 University o f Alcohol Std Drinks 00:00:00 00:00:00 [place] [facility] [place] History SDVT 2019-10-22 2019-10-22 99 University o f Alcohol Binge 00:00:00 00:00:00 [place] [facility] Alcohol Comment 2019-10-22 2019-10-22 socially, not Univer sity of 00:00:00 00:00:00 during [place] [facility] Sex Assigned At [birth year] [facility] 00:[facility] Smoking Status Start Date Stop Date Source Tobacco smoking consumption [facility] [place] [facility] unknown Branch [facility] smoked [facility] Medications Ordered Filled Start Stop Current Ordering Indication Dosage Frequency Signature Comments Components Source Medication Medication Date Date Medication? Clinician (SIG) Name Name ibuprofen 2022- No 600mg 600 mg, Uni vers (IBU) 08-22 Oral, ity of tablet 600 10:15: 10:06 ONCE, 1 Nico as mg 00 :00 dose, On Medical Mallorie 08/22/22 Branch at 0515, DAVE ibuprofen Yes [id number] 600mg Take 1 Univers 600 mg 08-22 tablet by ity of tablet 00:00: mouth [place] 00 every 6 Medical (six) Branch hours as needed for Pain (scale 4-6) or Temp > 38.5 C. cefdinir 2022- No [id number] 300mg Take 1 Univers 300 mg 08-22 capsule by ity of capsule 00:00: 04:59 mouth in [place] 00 :00 the Medical morning Branch and 1 capsule in the evening. Do all this for 10 days. acetaminoph 2022- No 4647 1{tbl} Take 1 U nivers en-codeine 08-22 tablet by ity of 300-30 mg 00:00: 04:59 mouth [place] tablet 00 :00 every 8 Medical (eight) Branch hours as needed for Pain (scale 7-10) for up to 7 days. Indication s: acute pain 28 Yes [id number] TAKE 1 Univers mg iron- 9-30 TABLET BY ity of 800 mcg Tab 00:00: MOUTH 00 DAILY Medical Branch 28 Yes [id number] TAKE 1 Univers mg iron- 9-30 TABLET BY ity of 800 mcg Tab 00:00: MOUTH [place] DAILY Medical Branch 28 Yes [id number] TAKE 1 Univers mg iron- 9-30 TABLET BY ity of 800 mcg Tab 00:00: MOUTH [place] DAILY Medical Branch 28 Yes [id number] TAKE 1 Univers mg iron- 9-30 TABLET BY ity of 800 mcg Tab 00:00: MOUTH [place] 00 DAILY Medical Branch 28 Yes [id number] TAKE 1 Univers mg iron- 9-30 TABLET BY ity of 800 mcg Tab 00:00: MOUTH [place] DAILY Medical Branch medroxyPROG 2021-0 Yes [id number] 150mg Univers ESTERone 4-14 ity of (DEPO-PROVE 14:00: [place] RA) 00 Medical injection Branch 150 mg medroxyPROG 2021-0 Yes [id number] 150mg Univers ESTERone 4-14 ity of (DEPO-PROVE 14:00: [place] RA) 00 Medical injection Branch 150 mg medroxyPROG 2021-0 Yes [id number] 150mg Univers ESTERone 4-14 ity of (DEPO-PROVE 14:00: [place] RA) 00 Medical injection Branch 150 mg medroxyPROG 2021-0 Yes [id number] 150mg Univers ESTERone 4-14 ity of (DEPO-PROVE 14:00: [place] RA) 00 Medical injection Branch 150 mg medroxyPROG 2021-0 Yes [id number] 150mg Univers ESTERone 4-14 ity of (DEPO-PROVE 14:00: [place] RA) 00 Medical injection Branch 150 mg azithromyci 2021-0 Yes TAKE 1 Univ ers n 500 mg 4-11 TABLET BY ity of tablet 00:00: MOUTH 00 EVERY DAY Medical FOR 10 Branch DAYS azithromyci 202-0 Yes TAKE 1 Univ ers n 500 mg 4-11 TABLET BY ity of tablet 00:00: MOUTH EVERY DAY Medical FOR 10 Branch DAYS azithromyci 2020-0 Yes TAKE 1 Univ ers n 500 mg 4-11 TABLET BY ity of tablet 00:00: MOUTH 00 EVERY DAY Medical FOR 10 Branch DAYS azithromyci 2020-0 Yes TAKE 1 Univ ers n 500 mg 4-11 TABLET BY ity of tablet 00:00: MOUTH 00 EVERY DAY Medical FOR 10 Branch DAYS azithromyci 2020-0 Yes TAKE 1 Univ ers n 500 mg 4-11 TABLET BY ity of tablet 00:00: MOUTH 00 EVERY DAY Medical FOR 10 Branch DAYS ciprofloxac 2020-0 Yes TAKE 1 Univ ers in HCl 500 4-07 TABLET BY ity of mg tablet 00:00: MOUTH 00 EVERY 12 Medical HOURS FOR Branch 10 DAYS ciprofloxac 202-0 Yes TAKE 1 Univ ers in HCl 500 4-07 TABLET BY ity of mg tablet 00:00: MOUTH [place] 00 EVERY 12 Medical HOURS FOR Branch 10 DAYS ciprofloxac 2020-0 Yes TAKE 1 Univ ers in HCl 500 4-07 TABLET BY ity of mg tablet 00:00: MOUTH [place] 00 EVERY 12 Medical HOURS FOR Branch 10 DAYS ciprofloxac Yes TAKE 1 Univ ers in HCl 500 4-07 TABLET BY ity of mg tablet 00:00: MOUTH [place] 00 EVERY 12 Medical HOURS FOR Branch 10 DAYS ciprofloxac Yes TAKE 1 Univ ers in HCl 500 4-07 TABLET BY ity of mg tablet 00:00: MOUTH [place] 00 EVERY 12 Medical HOURS FOR Branch 10 DAYS ibuprofen Yes [id number] 600mg Take 1 U nivers 600 mg 3-20 tablet by ity of tablet 00:00: mouth [place] 00 every 6 Medical (six) Branch hours as needed for Pain (scale 4-6). ibuprofen Yes [id number] 600mg Take 1 U nivers 600 mg 3-20 tablet by ity of tablet 00:00: mouth [place] 00 every 6 Medical (six) Branch hours as needed for Pain (scale 4-6). ibuprofen Yes [id number] 600mg Take 1 U nivers 600 mg 3-20 tablet by ity of tablet 00:00: mouth [place] 00 every 6 Medical (six) Branch hours as needed for Pain (scale 4-6). ibuprofen Yes [id number] 600mg Take 1 U nivers 600 mg 3-20 tablet by ity of tablet 00:00: mouth [place] 00 every 6 Medical (six) Branch hours as needed for Pain (scale 4-6). ibuprofen Yes [id number] 600mg Take 1 U nivers 600 mg 3-20 tablet by ity of tablet 00:00: mouth [place] 00 every 6 Medical (six) Branch hours as needed for Pain (scale 4-6). SUMATRIPTAN Yes 1 spray in Memoria 20 MG/ACT 6-23 one l NASAL SOLN 00:00: nostril Herm eleanor 00 one as needed for headache; if no improvemen t after 2 hours spray 1 more time in one nostril; max 2 sprays per day ZOFRAN 4 MG Yes take 1 tab Memoria ORAL TABS 6-23 by mouth l 00:00: every 6 [place] 00 hours as needed for nausea FLONASE 50 2013-02 Yes one spray Me moria MCG/ACT 0-01 each l SUSP 00:00: nostril [place] 00 daily TESSALON 2013-02 Yes take one Memor ia PERLES 100 0-01 tablet l MG CAPS 00:00: every 4-6 Diamond nn 00 hours as needed for sore throat. FLUCONAZOLE 2012-02 No 150 mg Daniel indigo 150 MG TABS 0-04 every 72 l 00:00: hours for [place] 00 3 doses MEDROL No use as Memoria (JULI) 4 MG 9-13 directed l TABS 00:00: to [place] 00 complete course BACTRIM DS No BID x 3 Daniel indigo 800-160 MG 9-13 days l TABS 00:00: [place] 00 CLARITIN-D No one daily Me moria 24 HOUR 913 prn l 10-240 MG 00:00: congestion He rmann [id number] FLUTICASONE No 2 sprays Me moria PROPIONATE 13 to each l 50 MCG/ACT 00:00: nostril Herm eleanor SUSP 00 daily for congestion BACTRIM DS No BID x 3 Daniel indigo 800-160 MG 9-13 days l TABS 00:00: Marty 00 BACTRIM DS No 1 PO BID Mem oria 800-160 MG 9-08 for l TABS 00:00: infection Marty FLUCONAZOLE No 1 pill PO M emoria 200 MG TABS 9-08 once for l 00:00: yeast [place] infection FLUCONAZOLE No 1 pill PO M emoria 200 MG TABS 9-08 once for l 00:00: yeast [place] infection BACTRIM DS No 1 PO BID Mem oria 800-160 MG 9-08 for l TABS 00:00: infection [place] FLUCONAZOLE No 1 pill PO M emoria 200 MG TABS 9-08 once for l 00:00: yeast Marty infection FLUCONAZOLE No 1 pill PO M emoria 200 MG TABS 9-08 once for l 00:00: yeast [place] infection METRONIDAZO No 1 PO BID Me moria LE 500 MG 9-04 for 7 days l TABS 00:00: [place] METRONIDAZO No 1 PO BID Me moria LE 500 MG 9-04 for 7 days l TABS 00:00: METRONIDAZO No 1 PO BID Me moria LE 500 MG 9-04 for 7 days l TABS 00:00: Marty 00 METRONIDAZO No 1 PO BID Me moria LE 500 MG 9-04 for 7 days l TABS 00:00: Yes [place] TABS TABS Physici ans Heparin Heparin Yes [place] Sodium Sodium Physici (Porcine) (Porcine) ans [id number] UNIT/10ML UNIT/10ML Intravenous Intravenous Solution Solution Prefilled Prefilled Syringe Syringe Immunizations Ordered Immunization Filled Immunization Date Status Commen ts Source Name Name influenza Unknown Completed [facility] immunization (Flu Vax) has been administered Vital Signs Vital Name Observation Time Observation Value Comments Source Systolic blood 2022-08-22 09:46:00 138 mm[Hg] [facility] Diastolic blood 2022-08-22 09:46:00 92 mm[Hg[facility] Heart rate 2022-08-22 09:46:00 100 /min [facility] Body temperature 2022-08-22 09:46:00 38.22 Steph [facility] Respiratory rate 2022-08-22 09:46:00 16 /min [facility] Body height 2022-08-22 09:46:[address] [facility] Body weight 2022-08-22 09:46:[address] [facility] BMI 2022-08-22 09:46:00 25.75 kg/m2 [facility] Oxygen saturation in 2022-08-22 09:46:00 99 /min [facility] Arterial blood by [facility] Pulse oximetry Branch Height 2014-08-09 20:46:52 [facility] Marty Weight 2014-08-09 20:46:52 [facility] 2014-08-09 20:46:52 Jair Ferguson Systolic (mm Hg) 2014-08-09 20:46:52 Daniel Ferguson Diastolic (mm Hg) 2014-08-09 20:46:52 Mem orial Marty Height 2013-11-18 00:27:37 [facility] Marty Weight 2013-11-18 00:27:37 Memorial [place] Temperature Oral (F) 2013-11-18 00:27:37 98.0 F Memorial Marty Respitory Rate 2013-11-18 00:27:37 Memori al Marty Heart Rate 2013-11-18 00:27:37 Memorial [place] Systolic (mm Hg) 2013-11-18 00:27:37 Daniel rial Marty Diastolic (mm Hg) 2013-11-18 00:27:37 Mem orial [place] Height 2013-09-10 19:43:42 Memorial Marty Respitory Rate 2013-09-10 19:43:42 Memori al Marty Weight 2013-09-10 19:43:42 Memorial Marty Temperature Oral (F) 2013-09-10 19:43:42 98.1 F Memorial [place] Heart Rate 2013-09-10 19:43:42 Memorial Marty Systolic (mm Hg) 2013-09-10 19:43:42 Daniel rial [place] Diastolic (mm Hg) 2013-09-10 19:43:42 Mem orial Marty Height 2013-05-31 19:12:30 Memorial [place] Weight 2013-05-31 19:12:30 Memorial [place] Temperature Oral (F) 2013-05-31 19:12:30 98.4 F Memorial [place] Respitory Rate 2013-05-31 19:12:30 Memori al Marty Heart Rate 2013-05-31 19:12:30 Memorial Marty Systolic (mm Hg) 2013-05-31 19:12:30 Daniel rial Marty Diastolic (mm Hg) 2013-05-31 19:12:30 Mem orial [place] Height 2012-11-20 22:07:30 Memorial Marty Weight 2012-11-20 22:07:30 Memorial Marty Temperature Oral (F) 2012-11-20 22:07:30 99.5 F Memorial [place] Respitory Rate 2012-11-20 22:07:30 Memori al Marty Heart Rate 2012-11-20 22:07:30 Memorial Marty Systolic (mm Hg) 2012-11-20 22:07:30 Daniel rial Marty Diastolic (mm Hg) 2012-11-20 22:07:30 Mem orial [place] Height 2012-10-30 23:49:10 Memorial Amrty Weight 2012-10-30 23:49:10 Memorial [place] Temperature Oral (F) 2012-10-30 23:49:10 97.9 F Memorial Marty Respitory Rate 2012-10-30 23:49:10 Memori al [place] Heart Rate 2012-10-30 23:49:10 Memorial Marty Systolic (mm Hg) 2012-10-30 23:49:10 Daniel rial Marty Diastolic (mm Hg) 2012-10-30 23:49:10 Mem orial Marty Height 2012-10-21 12:50:40 Memorial Marty Weight 2012-10-21 12:50:40 Memorial Marty Respitory Rate 2012-10-21 12:50:40 Memori al [place] Systolic (mm Hg) 2012-10-21 12:50:40 Daniel rial [place] Diastolic (mm Hg) 2012-10-21 12:50:40 Mem orial Marty Heart Rate 2012-10-21 12:50:40 Memorial Marty Temperature Oral (F) 2012-10-21 12:50:40 98.7 F Memorial Marty Height 2012-07-15 00:14:10 Memorial Marty Weight 2012-07-15 00:14:10 Memorial [place] Temperature Oral (F) 2012-07-15 00:14:10 98.6 F Memorial Marty Respitory Rate 2012-07-15 00:14:10 Memori al [place] Heart Rate 2012-07-15 00:14:10 Memorial Marty Systolic (mm Hg) 2012-07-15 00:14:10 Daniel rial Marty Diastolic (mm Hg) 2012-07-15 00:14:10 Mem orial Marty Weight 2012-04-17 00:20:00 Memorial Marty Height 2012-04-17 00:20:00 Memorial Marty Temperature Oral (F) 2012-04-17 00:20:00 98.2 F Memorial [place] Respitory Rate 2012-04-17 00:20:00 Memori al [place] Heart Rate 2012-04-17 00:20:00 Memorial Marty Systolic (mm Hg) 2012-04-17 00:20:00 Daniel rial [place] Diastolic (mm Hg) 2012-04-17 00:20:00 Mem orial Marty Height 2012-04-10 00:31:40 Memorial Marty Weight 2012-04-10 00:31:40 Memorial [place] Temperature Oral (F) 2012-04-10 00:31:40 97.9 F Memorial Marty Respitory Rate 2012-04-10 00:31:40 Memori al Marty Heart Rate 2012-04-10 00:31:40 Memorial [place] Systolic (mm Hg) 2012-04-10 00:31:40 Daniel rial Marty Diastolic (mm Hg) 2012-04-10 00:31:40 Mem orial [place] Height 2011-11-25 12:52:10 Memorial [place] Weight 2011-11-25 12:52:10 Memorial [place] Respitory Rate 2011-11-25 12:52:10 Memori al Marty Temperature Oral (F) 2011-11-25 12:52:10 98.0 F Memorial [place] Heart Rate 2011-11-25 12:52:10 Memorial Marty Systolic (mm Hg) 2011-11-25 12:52:10 Daniel rial Marty Diastolic (mm Hg) 2011-11-25 12:52:10 Mem orial [place] Height 2011-08-14 14:05:52 Memorial [place] Weight 2011-08-14 14:05:52 Memorial [place] Temperature Oral (F) 2011-08-14 14:05:52 97.7 F Memorial Marty Heart Rate 2011-08-14 14:05:52 [facility] [place] Systolic (mm Hg) 2011-08-14 14:05:52 Daniel rial [place] Diastolic (mm Hg) 2011-08-14 14:05:52 Mem orial Marty Respitory Rate 2011-08-14 14:05:52 Memori al [place] Height 2011-08-06 00:11:20 Memorial Marty Weight 2011-08-06 00:11:20 Memorial [place] Temperature Oral (F) 2011-08-06 00:11:20 98.6 F Memorial [place] Respitory Rate 2011-08-06 00:11:20 Memori al Marty Heart Rate 2011-08-06 00:11:20 Memorial Marty Systolic (mm Hg) 2011-08-06 00:11:20 Daniel rial [place] Diastolic (mm Hg) 2011-08-06 00:11:20 Mem orial [place] Procedures Procedure Date / Time Performing Clinician Source Performed COVID-19 (ID NOW RAPID 2022-08-22 10:17:00 Bill Krueger [facility] TESTING) Medical Branch RAPID STREP SCREEN FOR 2022-08-22 10:07:00 [facility] NOTICE OF PRIVACY 2022-08-22 10:01:33 [facility]igned, [facility] Branch CONSENT/REFUSAL FOR 2022-08-22 09:41:14 [facility], [facility] Name [facility] vaginal Pap smear 2011-11-25 05:00:00 [facility] results genitourinary review of 2011-08-14 14:05:52 [facility] systems, E&M Plan of Care Planned Activity Planned Date Details Comments Source Future Scheduled 2022-11-26 [facility]ACCINE [facility] Test 09:24:43 (#1) [code = COVID-19 VACCINE (#1)] Future Scheduled 2022-11-26 Hepatitis [facility] Test 09:24:43 screening (procedure) [code = 630385669] Future Scheduled 2022-11-26 [facility] Test 09:24:43 malignant neoplasm of cervix (procedure) [code = 429353828] Future Scheduled 2022-11-26 INFLUENZA VACCINE [facility] Test 09:24:43 (#1) [code = INFLUENZA VACCINE (#1)] Encounters Start End Encounter Admission Attending Care Care Encounter Source Date/Time Date/Time Type Type Clinicians Facility Department ID 2020-12-17 Emergency [facility] [id number] Univers 07:22:11 ity [facility] [place] [facility] 2020-12-16 Emergency [facility] [id number] Univers 17:53:39 ity [facility] 2022-08-22 2022-08-22 Emergency X VASUT, [facility] ERT [id number] Univers 04:48:00 06:52:00 BILL xie [facility] 2022-08-22 2022-08-22 Emergency Vasut, [facility] [id number] Univers 04:48:00 06:52:00 Bill MAGAÑA [id number] i [facility] [id number] [facility] [phone] [place] [address] Branch 2021-11-19 2021-11-19 Refill Raquel Urrutia [facility] [id number] Univers 00:00:00 00:00:00 [place] [id number] i ty of [facility] [id number] [place] PROF[place] [id number] Va dical COUNT INCLUDES THE [facility] 134 Branch BUILDING 2021-10-18 2021-10-18 Letter JAMIE Andrews [id number] Univers 00:00:00 00:00:00 (Out) [place] BULL [id number] it y of HOSPITAL [id number] Nico as [phone] [facility] [address] 2021-10-18 2021-10-18 Telephone Leon, [facility] [id number] Univers 00:00:00 00:00:00 Brian Mediastay HEALTH [id number] ity of SPECIALTY [id number] [facility] [place] [facility] [id number] [facility] [address] 2021-10-17 2021-10-17 Laboratory Only, Ang Db Test [facility] 1.2.8 [id number] [id number] Univers 11:15:00 11:30:00 Only Ebdewey, [employer] HEALTH [id number] ity of [place] [id number] Nico as JOEL?BLEA [phone] [facility] [address] MEDICAL OFFICE BUILDING 2021-10-17 2021-10-17 Outpatient R KIRAN [facility] [id number] Univers 11:15:00 11:15:00 RANIA ity [facility] 2021-10-17 2021-10-17 Outpatient R KIRAN [facility] [id number] Univers 11:15:00 11:15:00 TOMIIA ity [facility] 2021-10-17 2021-10-17 Orders Doctor AYALA [id number] Univers 00:00:00 00:00:00 Only Unassigned, JORGITO [id number] ity of [place] [facility] [id number] Nico as [phone] [address] 2021-08-06 2021-08-06 Outpatient ALEXEYRI, [facility] [id number] [place] 00:00:00 00:00:00 GRACE 462 Method i 2021-07-23 2021-07-23 Outpatient ESTEFANI [facility] [id number] [place] 00:00:00 00:00:[address] GR[address] 2020-11-16 2020-11-16 Refill Raquel Urrutia [facility] [id number] Univers 00:00:00 00:00:00 [place] [id number] i ty [facility] 4.2.7.2.686 [place] Profess[place] [phone] Va dical nal 134 [facility] 2020-08-23 2020-08-23 Outpatient R [facility] [id number] Univers 09:00:00 09:00:00 ity of [facility] 2020-05-31 2020-05-31 Outpatient R RAQUEL URRUTIA [facility] [id number] Univers 09:00:00 09:00:00 ity [facility] 2020-05-24 2020-05-24 Restaurant General Manager Abilio, [place] Lab Main [facility] 1.2.8 [id number] [id number] Univers 09:47:40 10:02:40 Visit Renan Raquel Magaña 350.1.13.10 ity [facility] [place] [phone] [place] 353 [facility] 2020-05-24 2020-05-24 Outpatient R RAQUEL URRUTIA [facility] [id number] Univers 09:00:00 09:00:00 ity [facility] 2020-05-24 2020-05-24 Orders Doctor JAMIE 1.2.840.114 [id number] Univers 00:00:00 00:00:00 Only Unassigned, JORGITO 350.1.13.10 ity of [facility] 4.2.7.2.686 [place] [phone] [address] 2020-05-10 2020-05-10 Telephone Raquel Urrutia [facility] 1.2.840.114 [id number] Univers 00:00:00 00:00:00 Mildred 350.1.13.10 i [place] [phone] [place] 134 [facility] 2020-05-09 2020-05-09 Patient Galo [facility] 1.2.840.114 [id number] Univers 00:00:00 00:00:00 Outreach Aram LEROY 350.1.13.10 i ty of Paul SANCHE[place].2.[place] [phone] [place]ical [address] 2020-05-08 2020-05-08 Restaurant General Manager Abilio, Kevon Lab Main [facility] 1.2.8 40.114 [id number] Univers 12:26:02 12:41:02 Visit Raquel Urrutia 350.1.13.10 ity of [place] [phone] [place]al 353 [facility] 2020-05-08 2020-05-08 Outpatient R RAQUEL URRUTIA [facility] [id number] Univers 11:00:00 11:00:00 ity of [facility] 2020-05-06 2020-05-07 Emergency Daysi Bro [facility] 1.2.840.114 [id number] Univers 21:09:00 01:50:00 Cass Magaña 350.1.13.10 i ty of [place] [phone] [address] 2020-03-07 2020-03-07 Emergency Aufder[place]ide [facility] 1.2.840.114 [id number] Univers 02:02:00 05:05:00 , Carolyn Magaña 350.1.13.10 i ty of Claire Campuz[place].2.[place] [phone] [address] 2020-03-07 2020-03-07 Telephone JAMIE Moss 1.2.036.577 [id number] Univers 00:00:00 00:00:00 Leanna BULL 350.1.13.10 ity of [facility] 4.2.7.2.686 [place] [phone] [facility] [address] 2019-10-22 2019-12-15 Initial Raquel Urrutia [facility] 1.2.840.114 [id number] Univers 15:44:35 13:04:05 [place] 350.1.13.10 ity of Visit [place] [phone] [facility] 2019-12-15 2019-12-15 Outpatient R RAQUEL URRUTIA [facility] [id number] Univers 10:30:00 10:30:00 ity of [facility] 2019-11-05 2019-11-05 Outpatient R RAQUEL URRUTIA [facility] [id number] Univers 15:00:00 15:00:00 ity of [facility] 2019-11-04 2019-11-04 Telephone Raquel Urrutia [facility] 1.2.840.114 [id number] Univers 00:00:00 00:00:00 [place] 350.1.13.10 i ty [place]2.[place] [phone] [address] 2019-10-28 2019-10-28 Outpatient R [facility] [id number] Univers 08:40:00 08:40:00 ity of [facility] 2019-10-28 2019-10-28 Nurse Nurse, Garima Tucker [facility] 1.2.840. 114 [id number] Univers 08:40:00 08:40:00 Visit Raquel Urrutia Dangelo 350.1.13.10 ity of [facility] 4.2.7.2.686 [facility] [phone] [facility] [address] 2019-10-26 2019-10-26 Telephone Raquel Urrutia [facility] 1.2.840.114 [id number] Univers 00:00:00 00:00:00 [place] 350.1.13.10 i ty [place].2.[place] [phone] [place] dic[address] 2019-10-25 2019-10-25 Patient Raquel Urrutia [facility] 1.2.840.114 [id number] Univers 00:00:00 00:00:00 Secure Msg [place] 350.1.13.10 ity of [place].2.[place] [phone] [place] dic[address] 2019-10-25 2019-10-25 Raquel Kate [facility] 1.2.840.114 [id number] Univers 00:00:00 00:00:00 [place] 350.1.13.10 i ty [place].2.[place] [phone] [address] 2019-10-22 2019-10-22 Outpatient R RAQUEL URRUTIA [facility] [id number] Univers 16:00:00 16:00:00 ity of [facility] 2019-10-22 2019-10-22 Orders Doctor JAMIE 1.2.840.114 [id number] Univers 00:00:00 00:00:00 Only Unassigned, JORGITO 350.1.13.10 ity of [place] [facility] 4.2.7.2.686 [place] [phone] [facility] [address] 2019-09-25 2019-09-25 Patient Doctor JAMIE 1.2.840.114 [id number] Univers 00:00:00 00:00:00 Secure Msg Unassigned, JORGITO 350.1.13.10 ity of [place] [facility] 4.2.7.2.686 [place] [phone] [facility] [address] 2019-09-24 2019-09-24 Outpatient R ELSA [facility] [id number] Univers 11:40:00 11:40:00 RADHA ity of [facility] 2019-09-24 2019-09-24 Laboratory Lab, [facility] 1.2.840.114 [id number] 11:18:26 11:38:26 Only Fam Pob I Health 350.1.13.10 [place] 4.2.7.2.686 Professio [phone] nal [address] 2019-09-24 2019-09-24 Laboratory Lab, [facility] Fam Pob I [facility] 1.2. 840.114 [id number] Univers 11:18:26 11:38:26 Only Radha [facility] 350.1.13.10 ity of [place] 4.2.7.2.686 [place] Profess[place] [phone] [address] Office [address] 2019-09-24 2019-09-24 Letter Doctor JAMIE 1.2.840.114 [id number] 00:00:00 00:00:00 (Out) Unassigned, JORGITO 350.1.13.10 [place] [facility] 4.2.7.2.686 [phone] [facility] 2019-09-24 2019-09-24 Letter Doctor JAMIE 1.2.840.114 [id number] Univers 00:00:00 00:00:00 (Out) Unassigned, JORGITO 350.1.13.10 ity of [place] [facility] 4.2.7.2.686 [place] [phone] [address] 2017-07-16 2017-07-16 Appointmen JODY MELENDEZ Dermatology [id number] [place] 13:00:00 13:00:00 t; RAQUEL MELENDEZ M.D. Physici yaya GARCÍA M.D. 2014-08-09 2014-08-09 [facility] [id number] Memoria 00:00:00 00:00:00 Visit r at [place] [id number] l [facility] [place] [facility] 2013-09-10 2013-09-10 Lab Report [facility] [id number] Memoria 00:00:00 00:00:00 r at [place] 187478 l [facility] 2013-09-10 2013-09-10 [facility] [id number] Mem[facility] 00:00:00 00:00:00 Visit r at [place] 864898 l [facility] 2013-05-31 2013-05-31 [facility] 53183 06140 Memoria 00:00:00 00:00:00 Visit r at [place] 561631 l [facility] 2012-11-20 2012-11-20 [facility] 05196 70299 Memoria 00:00:00 00:00:00 Visit r at [place] 578887 l [facility] 2012-11-20 2012-11-20 Lab [facility] [id number] [facility]oria 00:00:00 00:00:00 r Family 609773 [facility] 2012-10-30 2012-10-30 [facility] [id number] Memoria 00:00:00 00:00:00 Visit r at [place] 923365 l [facility] After Hours 2012-10-24 2012-10-24 Lab [facility] 16 [id number] Memoria 00:00:00 00:00:00 r at [place] 842728 [facility] Pod 2012-10-21 2012-10-21 [facility] [id number] [id number] Memoria 00:00:00 00:00:00 Visit r at [place] 041006 [facility] Pod 2012-07-14 2012-07-14 [facility] 08852 [id number] Memoria 00:00:00 00:00:00 Visit r at [place] 061371 l [facility] After Hours 2012-04-16 2012-04-16 [facility] 83548 [id number] Memoria 00:00:00 00:00:00 Visit r at [place] 586290 [facility] 2012-04-13 2012-04-13 Lab [facility] 16 [id number] Memoria 00:00:00 00:00:00 r at [place] 711641 [facility] 2012-04-09 2012-04-09 [facility] [id number] [id number] Memoria 00:00:00 00:00:00 Visit r at [place] 622878 [facility] 2011-11-29 2011-11-29 Lab [facility] 16 [id number] Memoria 00:00:00 00:00:00 r at [place] 375671 [facility] Pod 2011-11-25 2011-11-25 [facility] 73483 [id number] Memoria 00:00:00 00:00:00 Visit r at [place] 009454 [facility] Pod Results Test Description Test Time Test Comments Results Result Comments 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 2013-09-10 21:40:00 Test Item Value Reference Range Interpretation Comme nts PAP SMEAR (test code = PAP SMEAR) SEE NOTE [facility]fkgockOqoentqwz8473-22-77 00:15:00 Test Item Value Reference Range Interpretation Comments TSH (test code = TSH) 2.130 0.360-3.740 [facility]du[facility]kh1975-25-97 00:15:00 Test Item Value Reference Range Interpretation Comments HGB (test code = HGB) 13.7 12.0-16.0 [facility]v7253-31-60 00:15:00 Test Item Value Reference Range Interpretation Comments HCT (test code = HCT) 40.4 36.0-48.0 [facility]dnukztAsyxsufrnk2658-11-49 00:15:00 Test Item Value Reference Range Interpretation Comments PLATELETS (test code = PLATELETS) 234 K/CMM 133-450 [facility]/Aqn9207-75-97 05:00:00 Test Item Value Reference Range Interpretation Comments PAP SMEAR (test code = PAP SMEAR) SEE NOTE [facility]entonHzugbieOgsrrgabh2495-74-13 05:00:00 Test Item Value Reference Range Interpretation Comments PAP SMEAR (test code = PAP SMEAR) SEE NOTE [facility]/Rnm2614-68-30 05:00:00 Test Item Value Reference Range Interpretation Comments PAP SMEAR (test code = PAP SMEAR) SEE NOTE [facility]LmsrcvxUxnudggzn8933-78-15 15:30:00 Test Item Value Reference Range Interpretation Comments HDL (test code = HDL) 56 [facility] HospitalQzwpcxbLqscdmdqm6118-14-00 15:30:00 Test Item Value Reference Range Interpretation Comments LDL (test code = LDL) 103 <=129 [facility]sez[facility]cp2652-62-45 15:30:00 Test Item Value Reference Range Interpretation Comments UA COLOR (test code = UA COLOR) Yellow [facility]entonHfmeghuAnwkypawjo2809-27-61 15:30:00 Test Item Value Reference Range Interpretation Comments BACTERIA URN (test code = BACTERIA Occasional URN) [facility] DentonPaoxarcMfvwlohbgc9913-82-76 15:30:00 Test Item Value Reference Range Interpretation Comments UA COLOR (test code = UA COLOR) Yellow [facility] HospitalJtjnztkGhwzytbhn0044-98-12 15:30:00 Test Item Value Reference Range Interpretation Comments CHOLESTEROL (test code = CHOLESTEROL) 177 120-200 [facility] HospitalZtazebcHavyurjmt2514-07-36 15:30:00 Test Item Value Reference Range Interpretation Comments HDL (test code = HDL) 56 [facility] HospitalWkbwwftFkbvkaahr1649-88-73 15:30:00 Test Item Value Reference Range Interpretation Comments LDL (test code = LDL) 103 <=129 [facility] HospitalNsajuxjVrpeokhdq4537-65-99 15:30:00 Test Item Value Reference Range Interpretation Comments TSH (test code = TSH) 0.994 0.360-3.740 [facility] HospitalKzprqkxXagubhxwx3376-25-97 15:30:00 Test Item Value Reference Range Interpretation Comments SODIUM (test code = SODIUM) 142 MEQ/L 135-145 [facility] HospitalXrxgrjqEwobrgkbi9984-32-55 15:30:00 Test Item Value Reference Range Interpretation Comments POTASSIUM (test code = POTASSIUM) 4.5 MEQ/L 3.5-5.1 [facility] HospitalZxgjvzfKjhttlmah3721-68-14 15:30:00 Test Item Value Reference Range Interpretation Comments BUN (test code = BUN) 13 7-22 [facility] HospitalNjgxcqbPsgophnjy5929-19-11 15:30:00 Test Item Value Reference Range Interpretation Comments CREATININE (test code = CREATININE) 0.7 0.5-1.4 [facility] HospitalQfheznqWmvbgnxer1358-41-50 15:30:00 Test Item Value Reference Range Interpretation Comments BUN/CREAT (test code = BUN/CREAT) 19 1 6-25 [facility] HospitalKqlqqblEhntjpimj2290-75-50 15:30:00 Test Item Value Reference Range Interpretation Comments ALBUMIN (test code = ALBUMIN) 4.2 3.5-5.0 [facility] HospitalTiildxqSevzdfhif6450-33-62 15:30:00 Test Item Value Reference Range Interpretation Comments CALCIUM (test code = CALCIUM) 9.1 8.5-10.5 [facility] HospitalCtgbcnvXufbvbege8778-39-93 15:30:00 Test Item Value Reference Range Interpretation Comments SGOT (AST) (test code = SGOT (AST)) 15 <=37 [facility] HospitalCiahylkGyeahrvkm3323-52-37 15:30:00 Test Item Value Reference Range Interpretation Comments SGPT (ALT) (test code = SGPT (ALT)) 38 <=65 [facility] HospitalLozcmdiSpujnskab4187-07-30 15:30:00 Test Item Value Reference Range Interpretation Comments ALK PHOS (test code = ALK PHOS) 76 39-136 [facility] HospitalRfxfvvsRbjudcaws1717-26-06 15:30:00 Test Item Value Reference Range Interpretation Comments CHOLESTEROL (test code = CHOLESTEROL) 177 120-200 [facility] HospitalZjocatdTjhcofrur0199-30-86 15:30:00 Test Item Value Reference Range Interpretation Comments HDL (test code = HDL) 56 [facility] HospitalXfszjygMhdcsrkqx4155-70-99 15:30:00 Test Item Value Reference Range Interpretation Comments LDL (test code = LDL) 103 <=129 [facility] HospitalHewltriRdauxuerj6531-10-50 15:30:00 Test Item Value Reference Range Interpretation Comments TSH (test code = TSH) 0.994 0.360-3.740 [facility] HospitalJdylrwsKviiepkua8526-11-72 15:30:00 Test Item Value Reference Range Interpretation Comments SODIUM (test code = SODIUM) 142 MEQ/L 135-145 [facility] HospitalRnggsaaBpawiqair2994-75-49 15:30:00 Test Item Value Reference Range Interpretation Comments POTASSIUM (test code = POTASSIUM) 4.5 MEQ/L 3.5-5.1 [facility] HospitalLthfqzfHqshnrvry9707-30-61 15:30:00 Test Item Value Reference Range Interpretation Comments BUN (test code = BUN) 13 7-22 [facility] HospitalNmlyjejGhvaxmfod6437-92-28 15:30:00 Test Item Value Reference Range Interpretation Comments CREATININE (test code = CREATININE) 0.7 0.5-1.4 [facility] HospitalUmvemkuXwzhcevus1458-98-98 15:30:00 Test Item Value Reference Range Interpretation Comments BUN/CREAT (test code = BUN/CREAT) 19 1 6-25 [facility] HospitalBkgtjcjPxrsabyea5407-65-40 15:30:00 Test Item Value Reference Range Interpretation Comments ALBUMIN (test code = ALBUMIN) 4.2 3.5-5.0 [facility] HospitalHeizyczWciewyqhj5002-56-87 15:30:00 Test Item Value Reference Range Interpretation Comments CALCIUM (test code = CALCIUM) 9.1 8.5-10.5 [facility] HospitalDwqmhmeLdslgzpbm3082-55-32 15:30:00 Test Item Value Reference Range Interpretation Comments SGOT (AST) (test code = SGOT (AST)) 15 <=37 [facility] HospitalXvdpofrAisfwqqqg7127-79-82 15:30:00 Test Item Value Reference Range Interpretation Comments SGPT (ALT) (test code = SGPT (ALT)) 38 <=65 [facility] HospitalVovfjldOnfgyuhjb0130-62-03 15:30:00 Test Item Value Reference Range Interpretation Comments ALK PHOS (test code = ALK PHOS) 76 39-136 [facility]GyrkpwqIbcefmyixi8105-86-56 15:30:00 Test Item Value Reference Range Interpretation Comments HGB (test code = HGB) 12.7 12.0-16.0 [facility]villeNlskzfiSoxsmfrenz5340-95-09 15:30:00 Test Item Value Reference Range Interpretation Comments HCT (test code = HCT) 37.1 36.0-48.0 [facility] NscvhwvAicobsdhtb2600-61-48 15:30:00 Test Item Value Reference Range Interpretation Comments PLATELETS (test code = PLATELETS) 266 K/CMM 133-450 [facility] GreenvilleSjfpblzBdnpqrjsfs2468-08-06 15:30:00 Test Item Value Reference Range Interpretation Comments HGB (test code = HGB) 12.7 12.0-16.0 [facility] GreenvilleEgfahmiYtbndnxsii6015-82-02 15:30:00 Test Item Value Reference Range Interpretation Comments HCT (test code = HCT) 37.1 36.0-48.0 [facility] GreenvilleLfzkoxeFxdbvfvzkz5280-33-73 15:30:00 Test Item Value Reference Range Interpretation Comments PLATELETS (test code = PLATELETS) 266 K/CMM 133-450 [facility] GreenvilleDyjtopdSwaedkonzr0542-40-16 15:30:00 Test Item Value Reference Range Interpretation Comments UA COLOR (test code = UA COLOR) Yellow [facility] GreenvilleHgvpcsnQcawzuqikj0216-13-69 15:30:00 Test Item Value Reference Range Interpretation Comments BACTERIA URN (test code = BACTERIA Occasional URN) [facility]villeGigkfplHekdvplolg0599-80-82 15:30:00 Test Item Value Reference Range Interpretation Comments UA COLOR (test code = UA COLOR) Yellow [facility] YgtiyxeThmshoksvm9018-93-63 15:30:00 Test Item Value Reference Range Interpretation Comments BACTERIA URN (test code = BACTERIA Occasional URN) [facility] GreenvilleBuuselkTliiivvgd6110-30-23 15:30:00 Test Item Value Reference Range Interpretation Comments CHOLESTEROL (test code = CHOLESTEROL) 177 120-200 [facility]
[2022-11-26] MEDS ORDERED: ONDANSETRON 4 MG/2 ML VIAL ONE (10:03)
[2022-11-26] MEDS ORDERED: NA CHLORIDE 0.9% 1,000 ML ONE (10:03)
[2022-11-26] MEDS ORDERED: FAMOTIDINE 20 MG/2 ML VIAL IV ONE (10:03)
[2022-11-26 10:18] LABS: Hematocrit 40.1 % (36.0-45.0); Lymphocytes % 25.6 % (15.3-44.8); MCV 87.1 fL (80-100); Platelets 285 thou/uL (152-406); RBC Red Blood Cell Count 4.61 M/uL (3.86-4.86)
[2022-11-26 10:30] LABS: Albumin 3.9 g/dL (3.4-5.0); Bilirubin Total 0.7 mg/dL (0.2-1.0); Potassium 3.8 mEq/L (3.5-5.1); Protein, Total 8.4 g/dL (6.4-8.2)
[2022-11-26 11:31] LABS: Specific Gravity 1.015 (1.005-1.030); Urine Bacteria 20-50 /HPF (<20); Urine Bilirubin NEGATIVE (Negative); Urine Blood 1+ (Negative); Urine Clarity Extremely Turbid (Clear); Urine Color Light-Yellow (Yellow); Urine Glucose NEGATIVE (Negative); Urine Mucus Slight /HPF (None Seen); Urine Protein NEGATIVE (Negative); Urine RBC <5 /HPF (None Seen); Urine Urobilinogen Normal (Normal); Urine pH 5.5 (5.0-7.0)
[2022-11-26 11:33] LABS: Specific Gravity 1.015 (1.005-1.030)
--- NOTE | 2022-11-26 12:08 | RAD REPORT ---
EXAM DESCRIPTION: CT - Abdomen Pelvis W Contrast - 11/26/2022 11:41 am CLINICAL HISTORY: Abdominal pain COMPARISON: 2020 TECHNIQUE: Computed axial tomography of the abdomen pelvis was obtained. 100 cc Isovue-300 was admin istered intravenously. Oral contrast was not requested which limits evaluation of bowel and appendix All CT scans are performed using dose optimization technique as appropriate and may include automated exposure control or mA/KV adjustment according to patient size. FINDINGS: 9 millimeter cyst spleen. Sub centimeter area of enhancement within the superior aspect of the spleen without obvious change and probably benign Fatty liver. Liver is mildly enlarged. The pancreas, adrenals and kidneys unremarkable Normal appendix. No evidence of diverticulitis. 3 centimeter right ovarian cyst. No follow up imaging recommended. No significant free fluid IMPRESSION: 3 centimeter right ovarian cyst without significant free fluid Mild hepatomegaly
--- NOTE | 2022-11-26 12:20 | ER ---
Nurse's Notes [facility] Name: Dee Alves Age: 37 yrs Sex: Female : 1985 Arrival Date: 11/26/2022 Time: 09:22 Bed 16 Private MD: Diagnosis: Diarrhea, unspecified;Viral illness;UTI/ Urinary tract infection, site not specified Presentation: 11/26 09:38 Chief complaint: Patient states: Abdominal pain along with diarrhea since Friday, not nj1 getting better. Nauseous, denies vomiting. Coronavirus screen: Vaccine status: Patient reports being unvaccinated. Ebola Screen: Patient denies travel to an Ebola-affected area in the 21 days before illness onset. Initial Sepsis Screen: Does the patient meet any 2 criteria? No. Patient's initial sepsis screen is negative. Does the patient have a suspected source of infection? No. Patient's initial sepsis screen is negative. Risk Assessment: Do you want to hurt yourself or someone else? Patient reports no desire to harm self or others. Onset of symptoms was November 22, 2022. 09:38 Method Of Arrival: Ambulatory [facility] 09:38 Acuity: DIOGENES 3 nj1 Historical: - Allergies: 09:41 No Known Allergies; nj1 - PMHx: 09:41 None; nj1 - PSHx: 09:41 None; nj1 - Immunization history:: Client reports having NOT received the Covid vaccine. - Social history:: Smoking status: Patient denies any tobacco usage or history of. Screenin:14 [facility] ED Fall Risk Assessment (Adult) History of falling in the last 3 months, kc6 including since admission No falls in past 3 months (0 pts) Confusion or Disorientation No (0 pts) Intoxicated or Sedated No (0 pts) Impaired Gait No (0 pts) Mobility Assist Device Used No (0 pt) Altered Elimination No (0 pt) Score/Fall Risk Level 0 - 2 = Low Risk. Abuse screen: Denies threats or abuse. Denies injuries from another. Nutritional screening: No deficits noted. Tuberculosis screening: No symptoms or risk factors identified. Assessment: 10:15 General: Appears in no apparent distress. comfortable, Behavior is calm, cooperative, kc6 appropriate for age. Pain: Complains of pain in epigastric area, right upper quadrant and right lower quadrant. Neuro: Level of Consciousness is awake, alert, obeys commands, Oriented to person, place, time, situation, Appropriate for age. Cardiovascular: Capillary refill < 3 seconds. Respiratory: Airway is patent Trachea midline Respiratory effort is even, unlabored, Respiratory pattern is regular, symmetrical. GI: Abdomen is flat, non-distended, Bowel sounds present X 4 quads. Abd is soft X 4 quads Abdomen is tender to palpation in epigastric area, right upper quadrant and right lower quadrant Reports diarrhea, nausea, Patient currently denies vomiting. : No signs and/or symptoms were reported regarding the genitourinary system. Urine is clear. EENT: No signs and/or symptoms were reported regarding the EENT system. Derm: No signs and/or symptoms reported regarding the dermatologic system. Skin is intact, is healthy with good turgor, Skin is pink, warm \T\ dry. Musculoskeletal: No signs and/or symptoms reported regarding the musculoskeletal system. Circulation, motion, and sensation intact. Capillary refill < 3 seconds, Range of motion: intact in all extremities. 11:12 Reassessment: Patient appears in no apparent distress at this time. No changes from kc6 previously documented assessment. Patient and/or family updated on plan of care and expected duration. Pain level reassessed. Patient is alert, oriented x 3, equal unlabored respirations, skin warm/dry/pink. 12:12 Reassessment: Patient appears in no apparent distress at this time. No changes from kc6 previously documented assessment. Patient and/or family updated on plan of care and expected duration. Pain level reassessed. Patient is alert, oriented x 3, equal unlabored respirations, skin warm/dry/pink. Vital Signs: 09:38 BP 130 / 87; Pulse 85; Resp 18; Pulse Ox 100% ; Weight 69.4 kg; Height 5 ft. 4 in. ; nj1 Pain 8/10; 10:16 BP 123 / 81; Pulse 80; Resp 16 S; Pulse Ox 100% on R/A; kc6 09:38 Body Mass Index 26.26 (69.40 kg, 162.56 cm) al1 09:38 Pain Scale: Adult [facility] ED Course: 09:25 Patient arrived in ED. im 09:26 [facility] 09:26 Jeff Smith MD is Attending Physician. 7 09:41 Triage completed. nj1 09:42 Arm band placed on. nj1 09:46 Jud Mireles, EDGAR is Primary Nurse. kc6 10:01 Inserted saline lock: 22 gauge in left wrist, using aseptic technique. Blood collected. kc6 Patient maintains SpO2 saturation greater than 95% on room air. 10:15 Patient has correct armband on for positive identification. Bed in low position. Call kc6 light in reach. Side rails up X2. Client placed on continuous cardiac and pulse oximetry monitoring. NIBP monitoring applied. 10:49 Test, Serum Sent. kj1 11:16 Urinalysis w/ reflexes Sent. kc6 11:43 CT Abd/Pelvis - IV Contrast Only In Process Unspecified. EDMS 12:47 No provider procedures requiring assistance completed. IV discontinued, intact, kc6 bleeding controlled, No redness/swelling at site. Pressure dressing applied. Administered Medications: 10:00 Drug: NS 0.9% IV 1000 ml IV at 1 bolus Per protocol; 1000 mL bolus Route: IV; Rate: 1 kc6 bolus; Site: left wrist; 11:12 Follow up: Response: No adverse reaction; IV Status: Completed infusion; IV Intake: kc6 1000ml 10:00 Drug: Famotidine IVP 20 mg IVP once; dilute with 10 mL 0.9% NaCl; give over 2 minutes kc6 Route: IVP; Site: left wrist; 11:11 Follow up: Response: No adverse reaction; Pain is unchanged, physician notified kc6 10:00 Drug: Ondansetron IVP 4 mg IVP once; over 2 minutes Route: IVP; Site: left wrist; kc6 11:11 Follow up: Response: No adverse reaction; Nausea is decreased kc6 Medication: 12:48 VIS not applicable for this client. kc6 Intake: 11:12 IV: 1000ml; Total: 1000ml. kc6 Outcome: 12:19 Discharge ordered by . [facility] 12:47 Discharged to home ambulatory, kc6 12:47 Condition: improved 12:47 Discharge instructions given to patient, Instructed on discharge instructions, follow up and referral plans. medication usage, Demonstrated understanding of instructions, follow-up care, medications, Prescriptions given X 3, 12:48 Patient left the ED. kc6 Signatures: Dispatcher [employer] EDMS Dyan Pierson kj1 Delicia Duke FNP [employer] jh7 Jud Mireles, RN RN kc6 Marika Downs RN RN nj1 Therese Anglin
--- NOTE | 2022-11-26 12:20 | EDPHYS ---
Physician Documentation [facility] Name: Dee Alves Age: 37 yrs Sex: Female : 1985 Arrival Date: 11/26/2022 Time: 09:22 Bed 16 Private MD: ED Physician Jeff Smith HPI: 11/26 09:41 This 37 yrs old Female presents to ER via Ambulatory with complaints of jh7 Abdominal Pain, Diarrhea. 09:41 The patient presents with abdominal pain in the epigastric area, in the right upper jh7 quadrant. Onset: The symptoms/episode began/occurred 4 day(s) ago. The symptoms do not radiate. Associated signs and symptoms: Pertinent positives: diarrhea, nausea, Pertinent negatives: constipation, palpitations, shortness of breath, vomiting. The symptoms are described as sharp. Historical: - Allergies: 09:41 No Known Allergies; nj1 - PMHx: 09:41 None; nj1 - PSHx: 09:41 None; nj1 - Immunization history:: Client reports having NOT received the Covid vaccine. - Social history:: Smoking status: Patient denies any tobacco usage or history of. ROS: 09:41 Constitutional: Negative for fever, chills, and weight loss, Eyes: Negative for injury, jh7 pain, redness, and discharge, Neck: Negative for injury, pain, and swelling, Cardiovascular: Negative for chest pain, palpitations, and edema, Respiratory: Negative for shortness of breath, cough, wheezing, and pleuritic chest pain, Back: Negative for injury and pain, MS/Extremity: Negative for injury and deformity, Skin: Negative for injury, rash, and discoloration, Neuro: Negative for headache, weakness, numbness, tingling, and seizure, 09:41 Abdomen/GI: Positive for abdominal pain, nausea, diarrhea, Negative for vomiting, rectal pain, rectal bleeding, 09:41 All other systems are negative, Exam: 09:41 Constitutional: This is a well developed, well nourished patient who is awake, alert, jh7 and in no acute distress. Head/Face: Normocephalic, atraumatic. Neck: Trachea midline, no thyromegaly or masses palpated, and no cervical lymphadenopathy. Supple, full range of motion without nuchal rigidity, or vertebral point tenderness. No Meningismus. Cardiovascular: Regular rate and rhythm with a normal S1 and S2. No gallops, murmurs, or rubs. Normal PMI, no JVD. No pulse deficits. Respiratory: Lungs have equal breath sounds bilaterally, clear to auscultation and percussion. No rales, rhonchi or wheezes noted. No increased work of breathing, no retractions or nasal flaring. Back: No spinal tenderness. No costovertebral tenderness. Full range of motion. Skin: Warm, dry with normal turgor. Normal color with no rashes, no lesions, and no evidence of cellulitis. MS/ Extremity: Pulses equal, no cyanosis. Neurovascular intact. Full, normal range of motion. Neuro: Awake and alert, GCS 15, oriented to person, place, time, and situation. Motor strength 5/5 in all extremities. Sensory grossly intact. Normal gait. 09:41 Abdomen/GI: Inspection: abdomen appears normal, Bowel sounds: normal, Palpation: soft, mild abdominal tenderness, in the epigastric area and right upper quadrant, Vital Signs: 09:38 BP 130 / 87; Pulse 85; Resp 18; Pulse Ox 100% ; Weight 69.4 kg; Height 5 ft. 4 in. ; nj1 Pain 8/10; 10:16 BP 123 / 81; Pulse 80; Resp 16 S; Pulse Ox 100% on R/A; kc6 09:38 Body Mass Index 26.26 (69.40 kg, 162.56 cm) [facility] 09:38 Pain Scale: Adult [facility] MDM: 09:[address] [facility] 12:12 Differential diagnosis: diverticulitis, gastritis, non-specific abd pain, [facility] Pyelonephritis, urinary tract infection. Data reviewed: vital signs, nurses notes, lab test result(s), radiologic studies, CT scan. I considered the following discharge prescriptions or medication management in the emergency department Medications were administered in the Emergency Department. See MAR. Counseling: I had a detailed discussion with the patient and/or guardian regarding the historical points, exam findings, and any diagnostic results supporting the discharge/admit diagnosis, to return to the emergency department if symptoms worsen or persist or if there are any questions or concerns that arise at home. Response to treatment: the patient's symptoms have markedly improved after treatment. Special discussion: Asked the patient if she had been experiencing any urinary symptoms. She stated that she had mild dysuria yesterday and today but she did not know if it was because she was straining while having diarrhea. Informed her that the urine results could be due to contamination, but will prescribe Macrobid for the patient to fill only if she experiences urinary symptoms again. Informed her that the diarrhea was likely due to a viral illness that increasing p.o. fluid intake and taking medications as needed for symptom relief is the appropriate treatment plan. The patient understood the plan of care.. 11/26 08:33 Order name: CBC with Diff; Complete Time: [facility] 11/2633 Order name: CMP; Complete Time: [facility] 11/26 08:33 Order name: Lipase; Complete Time: [facility] 11/2633 Order name: Urinalysis w/ reflexes; Complete Time: [facility] 11/26 10:06 Order name: Test, Urine; Complete Time: [facility] 11/26 10:06 Order name: Test, Serum; Complete Time: [facility] 11/26 08:33 Order name: CT Abd/Pelvis - IV Contrast Only; Complete Time: 12: [facility] 11/26 08:33 Order name: IV Saline Lock; Complete Time: : [facility] 11/26 08:33 Order name: Labs collected and sent; Complete Time: : [facility] Administered Medications: 10:00 Drug: NS 0.9% IV 1000 ml IV at 1 bolus Per protocol; 1000 mL bolus Route: IV; Rate: 1 kc6 bolus; Site: left wrist; 11:12 Follow up: Response: No adverse reaction; IV Status: Completed infusion; IV Intake: kc6 1000ml 10:00 Drug: Famotidine IVP 20 mg IVP once; dilute with 10 mL 0.9% NaCl; give over 2 minutes kc6 Route: IVP; Site: left wrist; 11:11 Follow up: Response: No adverse reaction; Pain is unchanged, physician notified kc6 10:00 Drug: Ondansetron IVP 4 mg IVP once; over 2 minutes Route: IVP; Site: left wrist; kc6 11:11 Follow up: Response: No adverse reaction; Nausea is decreased kc6 Disposition: 14:16 Co-signature as Attending Physician, Jeff Smith MD I reviewed the patient's care rn provided by the Advanced Practice Provider and agree with the diagnosis and treatment plan. Disposition Summary: 11/26/22 12:19 Discharge Ordered Notes: Location: Home [facility] Problem: new [facility] Symptoms: have improved [facility] Condition: Stable [facility] Diagnosis - Diarrhea, unspecified [facility] - Viral illness 7 - UTI/ Urinary tract infection, site not specified [facility] Followup: [facility] - With: Private Physician - When: 2 - 3 days - Reason: Recheck today's complaints Discharge Instructions: - Discharge Summary Sheet [facility] - Food Choices to Help Relieve Diarrhea, Adult [facility] - Diarrhea, Adult [facility] - Urinary Tract Infection, Adult [facility] Forms: - Medication Reconciliation Form [facility] - Thank You Letter [facility] - Antibiotic Education [facility] - Patient Portal Instructions [facility] - Leadership Thank You Letter [facility] - Work release form kc6 Prescriptions: - ondansetron 4 mg Oral Tablet,disintegrating - take 1 tablet ORAL route every 4-6 hours As needed; 20 tablet; Refills: 0, [facility] Product Selection Permitted - Levsin 0.125 mg Oral Tablet - take 1 tablet ORAL route every 8 hours; 30 tablet; Refills: 0, Product [facility] Selection Permitted - Macrobid 100 mg Oral Capsule - take 1 capsule ORAL route every 12 hours for 7 days; 14 capsule; Refills: 0, [facility] Product Selection Permitted Signatures: Dispatcher [employer] Jeff Manuel MD MD rn Hadash, Jennifer, CASH APPLICATIONS ANALYST CASH APPLICATIONS ANALYST jh7 Jud Mireles RN RN kc6 Marika Downs RN RN nj1
[2022-11-26 12:52] VITALS: O2SAT 100
[2022-11-26 12:53] VITALS: BP 123/81
== END 2022-11-26 12:48 | disposition home or self-care (01) ==
LOC: ER 09:22
DX: B34.9 Viral infection, unspecified (principal); N39.0 Urinary tract infection, site not specified
CPT/HCPCS: 85025; 81001; 36415; 84703; 81025; 83690; 80053; 74177; Q9967; J2405; J7030

== ENCOUNTER → 2023-04-15 | Emergency (ER) | payer OTHER ==
[~2023-04-15] MED LIST: CEPHALEXIN 250 MG CAP ONE; CODEINE 30MG/APAP 300MG TAB ONE; FAMOTIDINE 20 MG TAB ONE; KETOROLAC 30 MG/ML INJ ONE; METOCLOPRAMIDE 10 MG/2mL INJ ONE; MORPHINE 4 MG/ML SYR ONE; NA CHLORIDE 0.9% 2,000 ML ONE; ONDANSETRON 4 MG/2 ML VIAL ONE; PANTOPRAZOLE 40MG TABLET PO ONE; PROMETHAZINE 25 MG TABLET ONE; metroNIDAZOLE 500 MG TABLET ONE
[2023-04-15 20:28] LABS: Specific Gravity 1.026 (1.005-1.030)
[2023-04-15 20:36] LABS: Specific Gravity 1.026 (1.005-1.030); Urine Bacteria <20 /HPF (<20); Urine Bilirubin NEGATIVE (Negative); Urine Blood Trace (Negative); Urine Clarity Extremely Turbid (Clear); Urine Color Yellow (Yellow); Urine Crystals Unidentified Few /HPF (None Seen); Urine Glucose NEGATIVE (Negative); Urine Mucus 2+ /HPF (None Seen); Urine Protein TRACE (Negative); Urine RBC <5 /HPF (None Seen); Urine Urobilinogen Normal (Normal)
[2023-04-15 20:50] LABS: Absolute Lymphocytes (CBC) 3.3 K/uL (0.7-4.9); Hematocrit 38.2 % (36.0-45.0); MCV 87.9 fL (80-100); MPV 8.7 fL (7.6-11.3); Platelets 327 thou/uL (152-406); RBC Red Blood Cell Count 4.35 M/uL (3.86-4.86)
[2023-04-15 21:08] LABS: Albumin 3.7 g/dL (3.4-5.0); Bilirubin Total 0.5 mg/dL (0.2-1.0); Potassium 3.8 mEq/L (3.5-5.1); Protein, Total 7.9 g/dL (6.4-8.2)
--- NOTE | 2023-04-15 21:13 | RAD REPORT ---
EXAM DESCRIPTION: US - Abdomen Exam Complete - 04/15/2023 9:07 pm CLINICAL HISTORY: ABD PAIN COMPARISON: Abdomen Pelvis W Contrast dated 11/26/2022 FINDINGS: The gallbladder demonstrates no gallstones. No pericholecystic fluid or gallbladder wall t hickening. The common bile duct was not evaluated. A CT is pending. The liver demonstrates no findings of intrahepatic biliary dilatation. Increased echogenicity of the liver. IMPRESSION: Negative for cholelithiasis or acute cholecystitis. Hepatic steatosis.
--- NOTE | 2023-04-15 22:01 | RAD REPORT ---
EXAM DESCRIPTION: CTAbdomen Pelvis W Contrast - 04/15/2023 9:41 pm CLINICAL HISTORY: ABD PAIN COMPARISON: Abdomen Pelvis W Contrast dated 11/26/2022; Abdomen Pelvis W Contrast dated ; Abdomen Pelvis W Contrast dated 02/03/2019 TECHNIQUE: CT of the abdomen and pelvis was performed. All CT scans are performed using dose optimization technique as appropriate and may include automated exposure control or mA/KV adjustment according to patient size. FINDINGS: Lower chest: No acute abnormality. Liver: Hepatomegaly with steatosis. Biliary: No biliary ductal dilatation. No pericholecystic inflammatory changes. Stomach: No significant focal abnormality. Duodenum: No significant focal abnormality. Pancreas: No significant abnormality. Spleen: Low-density lesion in the spleen measuring 12 millimeters is unchanged and benign. Adrenal: No suspicious lesions. Kidney/ureter: No hydronephrosis. No renal calculi. Retroperitoneum: No retroperitoneal adenopathy. Vascular: No aneurysm. Bowel: No significant focal abnormality. Normal appendix. Peritoneum: No ascites or free air. Bladder: Grossly unremarkable. Reproductive: No adnexal masses. Bones: No acute fracture. Other: n/a IMPRESSION: No acute intra-abdominal or pelvic finding. Normal appendix . Hepatomegaly with steatosis.
--- NOTE | 2023-04-15 22:56 | EDPHYS ---
Physician Documentation [facility] Name: Dee Alves Age: 38 yrs Sex: Female : 1985 Arrival Date: 04/15/2023 Time: 19:48 Bed 17 Private MD: ED Physician Alton Acosta HPI: 04/15 20:04 This 38 yrs old Female presents to ER via Ambulatory with complaints of sp4 Abdominal Pain, Nausea/Vomiting. 22:52 Very pleasant 38-year-old female presents with worsening abdominal pain since yesterday sp4 morning associated with vomiting. Patient was a different emergency department yesterday and was given medications but had no CT. patient states pain is mid abdominal and upper abdomen, with radiation diffusely. Associated with nausea at this time constant moderate in intensity. . [employer] WREST[employer]: 20:03 LMP 03/28/2023, unknown as6 Historical: - Allergies: 20:03 No Known Allergies; as6 - PMHx: 20:03 None; as6 - PSHx: 20:03 wrist; as6 - Immunization history:: Adult Immunizations up to date. - Social history:: Smoking status: Patient denies any tobacco usage or history of. - Family history:: not pertinent. ROS: 22:52 Constitutional: Negative for fever, chills, and weight loss, positive for abdominal sp4 pain nausea vomiting 22:52 All other systems are negative, Exam: 22:52 Constitutional: This is a well developed, well nourished patient who is awake, alert, sp4 and in no acute distress. Head/Face: Normocephalic, atraumatic. Eyes: Pupils equal round and reactive to light, extra-ocular motions intact. Lids and lashes normal. Conjunctiva and sclera are not injected. Cornea within normal limits. Periorbital areas with no swelling, redness, or edema. ENT: Nares patent. No nasal discharge, no septal abnormalities noted. Tympanic membranes are normal and external auditory canals are clear. Oropharynx with no redness, swelling, or masses, exudates, or evidence of obstruction, uvula midline. Mucous membranes moist. Neck: Trachea midline, no thyromegaly or masses palpated, and no cervical lymphadenopathy. Supple, full range of motion without nuchal rigidity, or vertebral point tenderness. Chest/axilla: Normal chest wall appearance and motion. Nontender with no deformity. No lesions are appreciated. Cardiovascular: Regular rate and rhythm with a normal S1 and S2. No gallops, murmurs, or rubs. Normal PMI, no JVD. No pulse deficits. Respiratory: Lungs have equal breath sounds bilaterally, clear to auscultation and percussion. No rales, rhonchi or wheezes noted. No increased work of breathing, no retractions or nasal flaring. Abdomen/GI: Soft, with normal bowel sounds. No distension or tympany. No guarding or rebound. Positive for upper abdominal tenderness, positive for epigastric tenderness. Negative rebound or peritoneal sign. Back: No spinal tenderness. No costovertebral tenderness. Skin: Warm, dry with normal turgor. Normal color with no rashes, no lesions, and no evidence of cellulitis. MS/ Extremity: Pulses equal, no cyanosis. Neurovascular intact. Full, normal range of motion. Neuro: Awake and alert, GCS 15, oriented to person, place, time, and situation. Cranial nerves II-XII grossly intact. Motor strength 5/5 in all extremities. Sensory grossly intact. Psych: Awake, alert, with orientation to person, place and time. Behavior, mood, and affect are within normal limits Vital Signs: 20:00 BP 131 / 95; Pulse 76; Resp 18; Temp 97.8(TE); Pulse Ox 98% on R/A; Weight 69.4 kg (R); as6 Height 5 ft. 4 in. (R); Pain 10/10; 20:48 BP 140 / 80; Pulse 66; Pulse Ox 97% on R/A; Pain 10/10; tm6 21:14 Pain 3/10; tm6 21:49 BP 119 / 75; Pulse 65; Resp 18; Pulse Ox 96% on R/A; Pain 0/10; tm6 22:43 BP 113 / 69; Pulse 63; Pulse Ox 97% on R/A; Pain 0/10; tm6 23:39 BP 135 / 85; Pulse 63; Resp 19; Temp 97.3(TE); Pulse Ox 99% on R/A; Pain 0/10; tm6 20:00 Body Mass Index 26.26 (69.40 kg, 162.56 cm) as6 20:00 Pain Scale: Adult as6 20:48 Pain Scale: Adult tm6 21:14 Pain Scale: Adult tm6 21:49 Pain Scale: Adult tm6 22:43 Pain Scale: Adult tm6 23:39 Pain Scale: Adult tm6 [place] Score: 22:52 Eye Response: spontaneous(4). Motor Response: obeys commands(6). Verbal Response: sp4 oriented(5). Total: 15. MDM: 20:05 Patient medically screened. sp4 22:52 Differential diagnosis: Nonspecific abd pain, gastritis, cholecystitis, pancreatitis, sp4 appendicitis, diverticulitis, viral gastroenteritis, gastroenteritis. Data reviewed: vital signs, nurses notes, lab test result(s), radiologic studies, CT scan, ultrasound. ED course: EXAM DESCRIPTION: CTAbdomen Pelvis W Contrast - 04/15/2023 9:41 pm CLINICAL HISTORY: ABD PAIN COMPARISON: Abdomen Pelvis W Contrast dated 11/26/2022; Abdomen Pelvis W Contrast dated 11/23/2020; Abdomen Pelvis W Contrast dated 02/03/2019 TECHNIQUE: CT of the abdomen and pelvis was performed. All CT scans are performed using dose optimization technique as appropriate and may include automated exposure control or mA/KV adjustment according to patient size. FINDINGS: Lower chest: No acute abnormality. Liver: Hepatomegaly with steatosis. Biliary: No biliary ductal dilatation. No pericholecystic inflammatory changes. Stomach: No significant focal abnormality. Duodenum: No significant focal abnormality. Pancreas: No significant abnormality. Spleen: Low-density lesion in the spleen measuring 12 millimeters is unchanged and benign. Adrenal: No suspicious lesions. Kidney/ureter: No hydronephrosis. No renal calculi. Retroperitoneum: No retroperitoneal adenopathy. Vascular: No aneurysm. Bowel: No significant focal abnormality. Normal appendix. Peritoneum: No ascites or free air. Bladder: Grossly unremarkable. Reproductive: No adnexal masses. Bones: No acute fracture. Other: n/a IMPRESSION: No acute intra-abdominal or pelvic finding. Normal appendix . Hepatomegaly with steatosis.. ED course: EXAM DESCRIPTION: US - Abdomen Exam Complete - 04/15/2023 9:07 pm CLINICAL HISTORY: ABD PAIN COMPARISON: Abdomen Pelvis W Contrast dated 11/26/2022 FINDINGS: The gallbladder demonstrates no gallstones. No pericholecystic fluid or gallbladder wall thickening. The common bile duct was not evaluated. A CT is pending. The liver demonstrates no findings of intrahepatic biliary dilatation. Increased echogenicity of the liver. IMPRESSION: Negative for cholelithiasis or acute cholecystitis. Hepatic steatosis. . 23:02 ED course: EXAM DESCRIPTION: US - Abdomen Exam Complete - 04/15/2023 9:07 pm CLINICAL sp4 HISTORY: ABD PAIN COMPARISON: Abdomen Pelvis W Contrast dated 11/26/2022 FINDINGS: The gallbladder demonstrates no gallstones. No pericholecystic fluid or gallbladder wall thickening. The common bile duct was not evaluated. A CT is pending. The liver demonstrates no findings of intrahepatic biliary dilatation. Increased echogenicity of the liver. IMPRESSION: Negative for cholelithiasis or acute cholecystitis. Hepatic steatosis. . 04/15 20:05 Order name: CBC with Diff; Complete Time: 22:43 [facility] 04/15 20:05 Order name: CMP; Complete Time: 22:43 [facility] 04/15 20:05 Order name: Lipase; Complete Time: 22:43 [facility] 04/15 20:05 Order name: Test, Urine; Complete Time: 22:43 [facility] 04/15 20:05 Order name: Urinalysis w/ reflexes; Complete Time: 22:43 [facility] 04/15 20:07 Order name: CT Abd/Pelvis - IV Contrast Only; Complete Time: 22:43 [facility] 04/15 20:30 Order name: US Abdomen Complete; Complete Time: 22:43 [facility] 04/15 20:05 Order name: IV Saline Lock; Complete Time: 20:31 [facility] 04/15 20:05 Order name: Labs collected and sent; Complete Time: 20:31 sp4 Administered Medications: 20:10 Drug: NS 0.9% IV 1000 ml IV at 1 bolus Per protocol; 1000 mL bolus Route: IV; Rate: 1 tm6 bolus; Site: right antecubital; 22:49 Follow up: Response: No adverse reaction; IV Status: Completed infusion; IV Intake: tm6 1000ml 20:10 Drug: Ondansetron IVP 4 mg IVP once; over 2 minutes Route: IVP; Site: right antecubital;tm6 22:50 Follow up: Response: No adverse reaction tm6 20:48 Drug: Ketorolac IVP 30 mg IVP once Route: IVP; Site: right antecubital; tm6 22:51 Follow up: Response: Marked relief of symptoms tm6 20:48 Drug: metoCLOPramide IVP 10 mg IVP once; over 1 to 2 minutes Route: IVP; Site: right tm6 antecubital; 22:51 Follow up: Response: Marked relief of symptoms tm6 20:48 Drug: morphine IVP or IV 4 mg IVP once over 4 mins Route: IVP; Infused Over: 4 mins; tm6 Site: right antecubital; 22:50 Follow up: Response: Marked relief of symptoms tm6 22:50 Follow up: Response: Marked relief of symptoms tm6 22:45 Drug: NS 0.9% IV 1000 ml IV at 250 ml/hr continuous Route: IV; Rate: 250 ml/hr; Site: tm6 right antecubital; 22:59 Drug: Promethazine PO 25 mg PO once Route: PO; tm6 22:59 Drug: metroNIDAZOLE PO 500 mg PO once Route: PO; tm6 22:59 Drug: Pantoprazole PO 40 mg PO once Route: PO; tm6 22:59 Drug: Famotidine PO 20 mg PO once Route: PO; tm6 22:59 Drug: Cephalexin PO 500 mg PO once Route: PO; tm6 22:59 Drug: Acetaminophen-Codeine PO (300 mg-30 mg) 2 tabs PO once; RASS on ADMIN: Combtv4, tm6 Very Agttd3, Agttd2, Rstlss1, AlertClm0, Drwsy-1, Lt Sdtn-2, Mod Sdtn-3, Dp Sdtn-4, UnArsble-5 Route: PO; Disposition Summary: 04/15/23 22:56 Discharge Ordered Notes: Ibuprofen 600 mg PO OTC every 6 hours as needed for pain Location: Home sp4 Problem: new sp4 Symptoms: have improved sp4 Condition: Stable sp4 Diagnosis - Acute gastritis sp4 Followup: sp4 - With: Private Physician - When: 7 - 10 days - Reason: Recheck today's complaints Discharge Instructions: - Discharge Summary Sheet sp4 - Gastritis, Adult, [id number] sp4 Forms: - Patient Portal Instructions sp4 - Work release form tm6 Prescriptions: - omeprazole 40 mg Oral capsule,delayed release (e.c.) - take 1 capsule ORAL route daily; 30 capsule; Refills: 0, Product Selection sp4 Permitted - Cephalexin 500 mg Oral Capsule - take 1 capsule ORAL route every 12 hours for 10 days; 20 capsule; Refills: 0, sp4 Product Selection Permitted - Flagyl 500 mg Oral Tablet - take 1 tablet ORAL route every 8 hours for 10 days; 30 tablet; Refills: 0, sp4 Product Selection Permitted - Tramadol 50 mg Oral Tablet - take 1 tablet ORAL route every 8 hours as needed; 12 tablet; Refills: 0, sp4 Product Selection Permitted - promethazine 25 mg Oral tablet - take 1 tablet ORAL route every 6 hours As needed PRN nausea; 30 tablet; sp4 Refills: 0, Product Selection Permitted Signatures: Dispatcher [employer] Edinson Nam RN RN as6 Alton Acosta MD MD sp4 Jose L Hansen RN RN tm6
--- NOTE | 2023-04-15 22:56 | ER ---
Nurse's Notes [facility] Name: Dee Alves Age: 38 yrs Sex: Female : 1985 Arrival Date: 04/15/2023 Time: 19:48 Bed 17 Private MD: Diagnosis: Acute gastritis Presentation: 04/15 20:00 Chief complaint: Patient states: nausea, vomiting, abdominal pain that started as6 yesterday. Coronavirus screen: At this time, the client does not indicate any symptoms associated with coronavirus-19. Ebola Screen: No symptoms or risks identified at this time. Initial Sepsis Screen: Does the patient meet any 2 criteria? No. Patient's initial sepsis screen is negative. Does the patient have a suspected source of infection? No. Patient's initial sepsis screen is negative. Risk Assessment: Do you want to hurt yourself or someone else? Patient reports no desire to harm self or others. Onset of symptoms was April 14, 2023. 20:00 Method Of Arrival: Ambulatory as6 20:00 Acuity: DIOGENES 3 as6 Triage Assessment: 20:03 General: Appears uncomfortable, Behavior is calm, cooperative. Pain: Complains of pain as6 in abdomen. GI: Abdomen is distended, Reports lower abdominal pain, nausea, vomiting. 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 - Social history:: Smoking status: Patient denies any tobacco usage or history of. - Family history:: not pertinent. Screenin:48 [facility] ED Fall Risk Assessment (Adult) History of falling in the last 3 months, tm6 including since admission No falls in past 3 months (0 pts) Confusion or Disorientation No (0 pts) Intoxicated or Sedated No (0 pts) Impaired Gait No (0 pts) Mobility Assist Device Used No (0 pt) Altered Elimination No (0 pt) Score/Fall Risk Level 0 - 2 = Low Risk Oriented to surroundings, Maintained a safe environment. Abuse screen: Denies threats or abuse. Denies injuries from another. Nutritional screening: No deficits noted. Tuberculosis screening: No symptoms or risk factors identified. Assessment: 20:48 General: Appears distressed, uncomfortable, Behavior is calm, cooperative. General: tm6 Behavior is crying. Pain: Complains of pain in epigastric area, right upper quadrant and left upper quadrant Pain currently is 10 out of 10 on a pain scale. Quality of pain is described as sharp, shooting, Pain began 2-3 days ago. Is continuous. Neuro: Level of Consciousness is awake, alert, obeys commands, Oriented to person, place, time, situation. Cardiovascular: Capillary refill < 3 seconds Patient's skin is warm and dry. Respiratory: Airway is patent Respiratory effort is even, unlabored, Respiratory pattern is regular, symmetrical. GI: Bowel sounds present X 4 quads. Abd is soft Abdomen is tender to palpation X 4 quads. Reports gaseousness, nausea, vomiting. : No signs and/or symptoms were reported regarding the genitourinary system. EENT: No signs and/or symptoms were reported regarding the EENT system. Derm: No signs and/or symptoms reported regarding the dermatologic system. Musculoskeletal: No signs and/or symptoms reported regarding the musculoskeletal system. 22:43 Reassessment: Patient and/or family updated on plan of care and expected duration. Pain tm6 level reassessed. Patient is alert, oriented x 3, equal unlabored respirations, skin warm/dry/pink. 23:39 Reassessment: Patient and/or family updated on plan of care and expected duration. Pain tm6 level reassessed. Patient is alert, oriented x 3, equal unlabored respirations, skin warm/dry/pink. Vital Signs: 20:00 BP 131 / 95; Pulse 76; Resp 18; Temp 97.8(TE); Pulse Ox 98% on R/A; Weight 69.4 kg (R); as6 Height 5 ft. 4 in. (R); Pain 10/10; 20:48 BP 140 / 80; Pulse 66; Pulse Ox 97% on R/A; Pain 10/10; tm6 21:14 Pain 3/10; tm6 21:49 BP 119 / 75; Pulse 65; Resp 18; Pulse Ox 96% on R/A; Pain 0/10; tm6 22:43 BP 113 / 69; Pulse 63; Pulse Ox 97% on R/A; Pain 0/10; tm6 23:39 BP 135 / 85; Pulse 63; Resp 19; Temp 97.3(TE); Pulse Ox 99% on R/A; Pain 0/10; tm6 20:00 Body Mass Index 26.26 (69.40 kg, 162.56 cm) as6 20:00 Pain Scale: Adult as6 20:48 Pain Scale: Adult tm6 21:14 Pain Scale: Adult tm6 21:49 Pain Scale: Adult tm6 22:43 Pain Scale: Adult tm6 23:39 Pain Scale: Adult tm6 Nicole Coma Score: 22:52 Eye Response: spontaneous(4). Motor Response: obeys commands(6). Verbal Response: sp4 oriented(5). Total: 15. ED Course: 19:59 Patient arrived in ED. gm2 20:03 Triage completed. as6 20:04 Alton Acosta MD is Attending Physician. sp4 20:04 Arm band placed on. as6 20:09 Radiology exam delayed due to lab results not completed at this time. (BUN/Creatinine). nj 20:09 Radiology exam delayed due to IV insertion attempt and/or patient not having nj appropriate IV at this time. 20:09 Radiology exam delayed due to test not completed at this time. nj 20:15 Jose L Hansen, RN is Primary Nurse. tm6 20:31 Inserted saline lock: 20 gauge in right antecubital area, using aseptic technique. tm6 20:48 Patient has correct armband on for positive identification. Placed in gown. Bed in low tm6 position. Call light in reach. Side rails up X2. Provided Education on: plan of care. Client placed on continuous cardiac and pulse oximetry monitoring. NIBP monitoring applied. Pulse ox on. NIBP on. Door closed. Noise minimized. Lights dimmed. Warm blanket given. 21:08 US Abdomen Complete In Process Unspecified. EDMS 21:43 CT Abd/Pelvis - IV Contrast Only In Process Unspecified. EDMS 23:39 No provider procedures requiring assistance completed. IV discontinued, intact, tm6 bleeding controlled, No redness/swelling at site. Pressure dressing applied. Administered Medications: 20:10 Drug: NS 0.9% IV 1000 ml IV at 1 bolus Per protocol; 1000 mL bolus Route: IV; Rate: 1 tm6 bolus; Site: right antecubital; 22:49 Follow up: Response: No adverse reaction; IV Status: Completed infusion; IV Intake: tm6 1000ml 20:10 Drug: Ondansetron IVP 4 mg IVP once; over 2 minutes Route: IVP; Site: right antecubital;tm6 22:50 Follow up: Response: No adverse reaction tm6 20:48 Drug: Ketorolac IVP 30 mg IVP once Route: IVP; Site: right antecubital; tm6 22:51 Follow up: Response: Marked relief of symptoms tm6 20:48 Drug: metoCLOPramide IVP 10 mg IVP once; over 1 to 2 minutes Route: IVP; Site: right tm6 antecubital; 22:51 Follow up: Response: Marked relief of symptoms tm6 20:48 Drug: morphine IVP or IV 4 mg IVP once over 4 mins Route: IVP; Infused Over: 4 mins; tm6 Site: right antecubital; 22:50 Follow up: Response: Marked relief of symptoms tm6 22:50 Follow up: Response: Marked relief of symptoms tm6 22:45 Drug: NS 0.9% IV 1000 ml IV at 250 ml/hr continuous Route: IV; Rate: 250 ml/hr; Site: tm6 right antecubital; 22:59 Drug: Promethazine PO 25 mg PO once Route: PO; tm6 22:59 Drug: metroNIDAZOLE PO 500 mg PO once Route: PO; tm6 22:59 Drug: Pantoprazole PO 40 mg PO once Route: PO; tm6 22:59 Drug: Famotidine PO 20 mg PO once Route: PO; tm6 22:59 Drug: Cephalexin PO 500 mg PO once Route: PO; tm6 22:59 Drug: Acetaminophen-Codeine PO (300 mg-30 mg) 2 tabs PO once; RASS on ADMIN: Combtv4, tm6 Very Agttd3, Agttd2, Rstlss1, AlertClm0, Drwsy-1, Lt Sdtn-2, Mod Sdtn-3, Dp Sdtn-4, UnArsble-5 Route: PO; Medication: 20:48 VIS not applicable for this client. tm6 Intake: 22:49 IV: 1000ml; Total: 1000ml. tm6 Outcome: 22:56 Discharge ordered by sp4 23:40 Discharged to home ambulatory, with family, tm6 23:40 Condition: stable 23:40 Discharge instructions given to patient, Instructed on discharge instructions, follow up and referral plans. medication usage, Demonstrated understanding of instructions, follow-up care, medications, Prescriptions given X 5 23:40 Patient left the ED. tm6 Signatures: Dispatcher [employer] EDMS Jonel Baker Ashby, RN RN as6 Alton Acosta MD MD 4 Maria Luisa Xiao 2 Jose L Hansen RN RN tm6 Corrections: (The following items were deleted from the chart) 20:04 20:03 GI: Reports lower abdominal pain, nausea, vomiting, as6 as6
[2023-04-15 23:57] VITALS: BP 135/85; TEMP 97.3; O2SAT 99
== END ==
LOC: ER 19:48
DX: K29.00 Acute gastritis without bleeding (principal)
CPT/HCPCS: 85025; 81001; 36415; 81025; 83690; 80053; 74177; 76700; Q9967; Q0169; J2765; J2405; J7030